=== PATIENT | female | born 1960 | race Caucasian/White ===

== ENCOUNTER 2017-08-26 23:59 | Emergency (ER) | payer MEDICARE, OTHER ==
[~2017-08-26] VITALS: Ht 182.9 cm; Wt 133.3 kg
[~2017-08-26 23:59] MED LIST: ASPI-611 PO; CARI250T PO; DIGO250T77 PO; DULO60CA64 PO; FURO40TA4 PO; GLIM4TAB79 PO; METO50TA16 PO; MORP20CA20 PO; OXYC30TA88 PO; POTA-82 PO; ZALE10CA PO
[2017-08-27 00:14] VITALS: BP 99/53
[2017-08-27] MEDS ORDERED: CLIN150C2 PO (00:33)
[2017-08-27] MEDS ORDERED: CEPH-572 PO (00:33)
== END 2017-08-27 01:24 | disposition home or self-care (01) ==
LOC: ER 08-27
DX: L03.116 Cellulitis of left lower limb (principal); I50.9 Heart failure, unspecified; E11.9 Type 2 diabetes mellitus without complications; G89.29 Other chronic pain; Z88.0 Allergy status to penicillin; Z79.82 Long term (current) use of aspirin; Z79.899 Other long term (current) drug therapy
CPT/HCPCS: 82948; 87070; 87077; 87186; 99284; A6251; A6446

== ENCOUNTER 2018-02-06 00:01 | Emergency (ER) | payer MEDICARE, OTHER ==
[~2018-02-06] VITALS: Ht 182.9 cm; Wt 131.8 kg
[2018-02-06 00:04] VITALS: BP 102/43
[2018-02-06] MEDS ORDERED: CEPH500C5 PO (01:04)
[2018-02-06] MEDS ORDERED: cephalexin 500mg capsule PO ONE (01:05)
== END 2018-02-06 01:25 | disposition home or self-care (01) ==
LOC: ER 00:02
DX: L03.116 Cellulitis of left lower limb (principal); G89.29 Other chronic pain; I50.9 Heart failure, unspecified; E11.9 Type 2 diabetes mellitus without complications; Z98.890 Other specified postprocedural states; Z88.0 Allergy status to penicillin; Z88.8 Allergy status to other drugs, medicaments and biological substances; Z79.82 Long term (current) use of aspirin; Z79.899 Other long term (current) drug therapy
CPT/HCPCS: 99283; A6255

== ENCOUNTER 2018-03-12 09:13 | Inpatient (IN) | payer MEDICARE, OTHER ==
[2018-03-12] VITALS (11 sets, daily range): BP systolic 85–124; BP diastolic 37–69
[~2018-03-12] VITALS: Ht 182.9 cm; Wt 139.0 kg
[~2018-03-12 09:13] MED LIST changes: +CEPH500C5 PO
[2018-03-12] MEDS ORDERED: dextrose 50%-water 50ml dispensing syringe IV ONE ×3 (09:59→10:45)
[2018-03-12 10:18] LABS: BASOPHILS % (AUTO) 0.3 % (0-1); EOSINOPHILS # (AUTO) 0.1 X10'3 (0-0.9); EOSINOPHILS % (AUTO) 0.6 % (0-6); LYMPHOCYTES # (AUTO) 0.7 X10'3 (1.1-4.8); LYMPHOCYTES % (AUTO) 8.4 % (21-51); MEAN CORPUSCULAR HEMOGLOBIN 25.3 PG (27.0-31.0); MEAN CORPUSCULAR HGB CONC 32.1 % (33.0-36.5); MEAN CORPUSCULAR VOLUME 78.7 FL (78-98); MEAN PLATELET VOLUME 7.6 FL (7.4-10.4); MONOCYTES # (AUTO) 0.3 X10'3 (0-0.9); NEUTROPHILS # (AUTO) 7.2 X10'3 (1.8-7.7); NEUTROPHILS % (AUTO) 86.7 % (42-75); PLATELET COUNT 238 X10'3 (140-440); RED CELL DISTRIBUTION WIDTH 18.6 % (11.5-14.5); WHITE BLOOD COUNT 8.4 X10'3 (4.5-11.0)
[2018-03-12] MEDS ORDERED: ondansetron/PF 4mg/2ml inj IV ONE (10:20)
[2018-03-12 10:25] LABS: HEMATOCRIT 18.9 % (35.0-45.0); HEMOGLOBIN 6.1 g/dl (12.0-16.0)
[2018-03-12] MEDS ORDERED: Dextrose 10%-water IV solution 1,000 ML IV ONE (10:27)
[2018-03-12 10:35] LABS: ALANINE AMINOTRANSFERASE 9 U/L (12-78); ALBUMIN 2.8 G/DL (3.4-5.0); ALBUMIN/GLOBULIN RATIO 0.6 (1.1-1.5); ALKALINE PHOSPHATASE 150 IU/L (46-116); ANION GAP 11 (8-16); ASPARTATE AMINO TRANSFERASE 11 U/L (10-37); BILIRUBIN,TOTAL 0.3 MG/DL (0.1-1.0); BLOOD UREA NITROGEN 64 MG/DL (7-18); BUN/CREATININE RATIO 18.1 (6.6-38.0); CALCIUM 7.1 MG/DL (8.5-10.1); CHLORIDE 100 MMOL/L (99-107); CREATININE 3.53 MG/DL (0.40-0.90); ETHANOL < 0.010 GM/DL (0.0-0.010); MAGNESIUM 1.8 MG/DL (1.5-2.4); SODIUM 131 MMOL/L (135-145); TOTAL PROTEIN 7.7 G/DL (6.4-8.2); eGFR 13 ML/MIN
[2018-03-12 10:37] LABS: GLUCOSE 47 MG/DL (70-104); POTASSIUM 6.5 MMOL/L (3.5-5.1)
[2018-03-12] MEDS ORDERED: sodium polystyrene sulfonate 15gm/60ml oral suspension PO ONE (10:45)
[2018-03-12] MEDS ORDERED: calcium chloride 100 MG/1 ML inj IV ONE (10:45)
[2018-03-12] MEDS ORDERED: normal saline 1000ml 1,000 ML IV SCH (11:09)
[2018-03-12] MEDS ORDERED: potassium Cl 20 mEq SR tablet PO PRN (11:10)
[2018-03-12] MEDS ORDERED: dextrose ORAL solution 15 GM/59 ML bottle PO PRN (11:10)
[2018-03-12] MEDS ORDERED: acetaminophen 325mg tablet PO PRN ×2 (11:10)
[2018-03-12] MEDS ORDERED: glucagon, human recombinant 1mg kit SUBCUT PRN (11:10)
[2018-03-12] MEDS ORDERED: MESSAGE TO PHARMACY PO ONE (11:10)
[2018-03-12] MEDS ORDERED: docusate sod 100mg capsule PO PRN (11:10)
[2018-03-12] MEDS ORDERED: mag hydrox/Alum hydrox/simeth 30ml oral suspension PO PRN (11:10)
[2018-03-12] MEDS ORDERED: dextrose 50%-water 50ml dispensing syringe IV PRN (11:10)
[2018-03-12] MEDS ORDERED: ondansetron/PF 4mg/2ml inj IV PRN (11:10)
[2018-03-12] MEDS ORDERED: proCHLORperazine 10 MG/2 ml inj IV ONE (11:15)
[2018-03-12] MEDS ORDERED: GLIM4TAB79 PO (11:58)
[2018-03-12] MEDS ORDERED: TRAZ-219 PO (11:58)
[2018-03-12] MEDS ORDERED: APIX5TAB3 PO (11:58)
[2018-03-12] MEDS ORDERED: OXYC30TA88 PO (11:58)
[2018-03-12] MEDS ORDERED: LISI-600 PO (11:58)
[2018-03-12] MEDS ORDERED: MORP100C17 PO (11:58)
[2018-03-12] MEDS ORDERED: DIAZ5TAB4 PO (11:58)
[2018-03-12 12:04] LABS: HEMOGLOBIN A1C 7.3 % (4.5-6.2)
[2018-03-12] MEDS: dextrose 50%-water 50ml dispensing syringe IV PRN ×2 (13:27→22:38)
[2018-03-12] MEDS: dextrose ORAL solution 15 GM/59 ML bottle PO PRN ×4 (15:44→22:14)
[2018-03-12] MEDS ORDERED: albuterol 2.5 MG/3 ML nebule CONTNEB ONE (19:05)
[2018-03-12] MEDS ORDERED: dextrose 5%-normal saline 1,000 ML IV SCH (19:30)
[2018-03-12] MEDS ORDERED: sodium bicarbonate (8.4%) inj. 50 MEQ in dextrose 5%-water 1,000 ML IV ONE (19:30)
[2018-03-12] MEDS: metoprolol tartrate 25mg tablet PO SCH (20:00)
[2018-03-12] MEDS: morphine ER 100mg tablet PO SCH (20:45)
[2018-03-12] MEDS ORDERED: temazepam 15mg capsule PO PRN (21:00)
[2018-03-12] MEDS: insulin glargine (Lantus) pen - multi-dose SQ SCH (21:00)
[2018-03-12 23:30] LABS: BASOPHILS % (AUTO) 0.5 % (0-1); EOSINOPHILS # (AUTO) 0.1 X10'3 (0-0.9); EOSINOPHILS % (AUTO) 1.9 % (0-6); HEMATOCRIT 22.7 % (35.0-45.0); HEMOGLOBIN 7.5 g/dl (12.0-16.0); LYMPHOCYTES # (AUTO) 0.8 X10'3 (1.1-4.8); LYMPHOCYTES % (AUTO) 10.3 % (21-51); MEAN CORPUSCULAR HEMOGLOBIN 26.4 PG (27.0-31.0); MEAN CORPUSCULAR HGB CONC 33.1 % (33.0-36.5); MEAN CORPUSCULAR VOLUME 79.9 FL (78-98); MEAN PLATELET VOLUME 7.3 FL (7.4-10.4); MONOCYTES # (AUTO) 0.4 X10'3 (0-0.9); NEUTROPHILS % (AUTO) 82.3 % (42-75); PLATELET COUNT 219 X10'3 (140-440); RED BLOOD COUNT 2.85 X10'6 (4.20-5.60); WHITE BLOOD COUNT 7.3 X10'3 (4.5-11.0)
[2018-03-12] MEDS: sodium chloride inj. 154 MEQ in Dextrose 10%-water IV solution 961.5 ML IV SCH (23:39)
[2018-03-12 23:56] LABS: ANISOCYTOSIS 2+; PLATELET ESTIMATE NORMAL
[2018-03-12 23:57] LABS: POIKILOCYTOSIS FEW; POLYCHROMASIA FEW
[2018-03-13] VITALS (11 sets, daily range): BP systolic 87–128; BP diastolic 31–60
[2018-03-13] MEDS: dextrose 50%-water 50ml dispensing syringe IV PRN ×2 (00:11→04:05)
[2018-03-13] MEDS ORDERED: dextrose 50%-water 50ml dispensing syringe IV ONE (00:25)
[2018-03-13] MEDS ORDERED: sodium bicarbonate (8.4%) 1 mEq/ml syringe IV ONE (00:25)
[2018-03-13] MEDS ORDERED: insulin regular, human 10 units/0.1 ml syringe IV ONE (00:25)
[2018-03-13] MEDS ORDERED: albuterol 2.5 MG/3 ML nebule NEB ONE (00:25)
[2018-03-13] MEDS ORDERED: sodium polystyrene sulfonate 15gm/60ml oral suspension PO ONE ×2 (00:25→12:55)
[2018-03-13 05:02] LABS: BASOPHILS % (AUTO) 0.4 % (0-1); EOSINOPHILS # (AUTO) 0.1 X10'3 (0-0.9); EOSINOPHILS % (AUTO) 2.2 % (0-6); LYMPHOCYTES # (AUTO) 0.8 X10'3 (1.1-4.8); LYMPHOCYTES % (AUTO) 13.1 % (21-51); MEAN CORPUSCULAR HEMOGLOBIN 26.5 PG (27.0-31.0); MEAN CORPUSCULAR HGB CONC 32.9 % (33.0-36.5); MEAN CORPUSCULAR VOLUME 80.4 FL (78-98); MEAN PLATELET VOLUME 7.4 FL (7.4-10.4); MONOCYTES # (AUTO) 0.3 X10'3 (0-0.9); MONOCYTES % (AUTO) 5.4 % (2-12); NEUTROPHILS % (AUTO) 78.9 % (42-75); PLATELET COUNT 198 X10'3 (140-440); RED BLOOD COUNT 2.52 X10'6 (4.20-5.60); RED CELL DISTRIBUTION WIDTH 17.8 % (11.5-14.5); WHITE BLOOD COUNT 6.3 X10'3 (4.5-11.0)
[2018-03-13 05:06] LABS: HEMATOCRIT 20.3 % (35.0-45.0); HEMOGLOBIN 6.7 g/dl (12.0-16.0)
[2018-03-13 05:29] LABS: ALANINE AMINOTRANSFERASE 12 U/L (12-78); ALBUMIN 2.4 G/DL (3.4-5.0); ALBUMIN/GLOBULIN RATIO 0.6 (1.1-1.5); ALKALINE PHOSPHATASE 132 IU/L (46-116); ANION GAP 10 (8-16); ASPARTATE AMINO TRANSFERASE 15 U/L (10-37); BILIRUBIN,TOTAL 0.5 MG/DL (0.1-1.0); BLOOD UREA NITROGEN 54 MG/DL (7-18); BUN/CREATININE RATIO 18.6 (6.6-38.0); CALCIUM 6.5 MG/DL (8.5-10.1); CHLORIDE 104 MMOL/L (99-107); GLUCOSE 120 MG/DL (70-104); MAGNESIUM 1.6 MG/DL (1.5-2.4); POTASSIUM 5.5 MMOL/L (3.5-5.1); SODIUM 135 MMOL/L (135-145); TOTAL CARBON DIOXIDE 21.2 MMOL/L (24-32); TOTAL PROTEIN 6.6 G/DL (6.4-8.2); eGFR 17 ML/MIN
[2018-03-13] MEDS ORDERED: pneumococcal 23-VAL P-sac vacc 25 mcg/0.5ml vial IMVAC ONE (08:00)
[2018-03-13] MEDS: K and/or MAG REPLACEMENT MC SCH (08:00)
[2018-03-13] MEDS: metoprolol tartrate 25mg tablet PO SCH ×2 (08:00→20:00)
[2018-03-13] MEDS: sodium chloride inj. 154 MEQ in Dextrose 10%-water IV solution 961.5 ML IV SCH ×2 (08:08→11:37)
[2018-03-13] MEDS: morphine ER 100mg tablet PO SCH ×3 (08:40→16:24)
[2018-03-13] MEDS: duloxetine 30mg CAPSULE.DR PO SCH (08:40)
[2018-03-13] MEDS ORDERED: vancomycin/NS 1 GM ADD-VANTAGE 250 ML IV ONE ×2 (09:05→11:20)
[2018-03-13] MEDS ORDERED: levoFLOXACIN-Levaquin 750MG/D5 150 ML IV SCH (09:30)
[2018-03-13] MEDS ORDERED: dextrose 5%-water 1,000 ML IV SCH (12:15)
[2018-03-13 14:50] LABS: RED BLOOD COUNT 2.68 X10'6 (4.20-5.60); RETICULOCYTE % (AUTO) 2.4 % (0.5-1.5)
[2018-03-13 17:15] LABS: BASOPHILS % (AUTO) 0.4 % (0-1); EOSINOPHILS # (AUTO) 0.1 X10'3 (0-0.9); EOSINOPHILS % (AUTO) 0.8 % (0-6); HEMATOCRIT 22.7 % (35.0-45.0); HEMOGLOBIN 7.4 g/dl (12.0-16.0); LYMPHOCYTES # (AUTO) 0.6 X10'3 (1.1-4.8); MEAN CORPUSCULAR HEMOGLOBIN 26.5 PG (27.0-31.0); MEAN CORPUSCULAR HGB CONC 32.7 % (33.0-36.5); MEAN CORPUSCULAR VOLUME 80.9 FL (78-98); MEAN PLATELET VOLUME 7.4 FL (7.4-10.4); MONOCYTES # (AUTO) 0.4 X10'3 (0-0.9); MONOCYTES % (AUTO) 4.4 % (2-12); NEUTROPHILS # (AUTO) 7.2 X10'3 (1.8-7.7); NEUTROPHILS % (AUTO) 87.4 % (42-75); PLATELET COUNT 205 X10'3 (140-440); RED BLOOD COUNT 2.81 X10'6 (4.20-5.60); RED CELL DISTRIBUTION WIDTH 17.5 % (11.5-14.5); WHITE BLOOD COUNT 8.2 X10'3 (4.5-11.0)
[2018-03-13 17:31] LABS: ALANINE AMINOTRANSFERASE 13 U/L (12-78); ALBUMIN 2.3 G/DL (3.4-5.0); ALBUMIN/GLOBULIN RATIO 0.6 (1.1-1.5); ALKALINE PHOSPHATASE 136 IU/L (46-116); ANION GAP 10 (8-16); ASPARTATE AMINO TRANSFERASE 14 U/L (10-37); BILIRUBIN,TOTAL 0.7 MG/DL (0.1-1.0); BLOOD UREA NITROGEN 45 MG/DL (7-18); BUN/CREATININE RATIO 16.2 (6.6-38.0); CALCIUM 6.2 MG/DL (8.5-10.1); CHLORIDE 102 MMOL/L (99-107); CREATININE 2.78 MG/DL (0.40-0.90); GLUCOSE 305 MG/DL (70-104); POTASSIUM 5.1 MMOL/L (3.5-5.1); SODIUM 134 MMOL/L (135-145); TOTAL CARBON DIOXIDE 21.6 MMOL/L (24-32); TOTAL PROTEIN 6.4 G/DL (6.4-8.2); eGFR 18 ML/MIN
[2018-03-13] MEDS: normal saline 1000ml 1,000 ML IV SCH (17:55)
[2018-03-13] MEDS: insulin glargine (Lantus) pen - multi-dose SQ SCH (20:49)
[2018-03-13] MEDS: insulin Lispro (HumaLOG) vial - multi-dose SQ SCH (20:49)
[2018-03-13] MEDS: lactobacillus rhamnosus 10,000 MMU CELLS/CAPSULE PO SCH (21:08)
[2018-03-13] MEDS ORDERED: diazepam 5mg tablet PO PRN (21:45)
[2018-03-14] VITALS (10 sets, daily range): BP systolic 113–134; BP diastolic 51–81
[2018-03-14] MEDS: morphine ER 100mg tablet PO SCH ×4 (00:05→23:41)
[2018-03-14] MEDS: normal saline 1000ml 1,000 ML IV SCH ×3 (02:03→10:44)
[2018-03-14 06:50] LABS: BASOPHILS % (AUTO) 0.3 % (0-1); EOSINOPHILS # (AUTO) 0.1 X10'3 (0-0.9); EOSINOPHILS % (AUTO) 1.9 % (0-6); LYMPHOCYTES # (AUTO) 0.7 X10'3 (1.1-4.8); LYMPHOCYTES % (AUTO) 9.7 % (21-51); MEAN CORPUSCULAR HEMOGLOBIN 26.2 PG (27.0-31.0); MEAN CORPUSCULAR HGB CONC 32.9 % (33.0-36.5); MEAN CORPUSCULAR VOLUME 79.7 FL (78-98); MEAN PLATELET VOLUME 7.6 FL (7.4-10.4); MONOCYTES # (AUTO) 0.4 X10'3 (0-0.9); MONOCYTES % (AUTO) 5.8 % (2-12); NEUTROPHILS # (AUTO) 5.9 X10'3 (1.8-7.7); NEUTROPHILS % (AUTO) 82.3 % (42-75); PLATELET COUNT 200 X10'3 (140-440); RED BLOOD COUNT 2.66 X10'6 (4.20-5.60); RED CELL DISTRIBUTION WIDTH 18.2 % (11.5-14.5); WHITE BLOOD COUNT 7.2 X10'3 (4.5-11.0)
[2018-03-14 07:00] LABS: HEMATOCRIT 21.2 % (35.0-45.0)
[2018-03-14] MEDS: lactobacillus rhamnosus 10,000 MMU CELLS/CAPSULE PO SCH ×2 (07:22→20:51)
[2018-03-14] MEDS: duloxetine 30mg CAPSULE.DR PO SCH (07:22)
[2018-03-14 07:38] LABS: ALANINE AMINOTRANSFERASE 15 U/L (12-78); ALBUMIN 2.3 G/DL (3.4-5.0); ALBUMIN/GLOBULIN RATIO 0.6 (1.1-1.5); ALKALINE PHOSPHATASE 124 IU/L (46-116); ANION GAP 9 (8-16); ASPARTATE AMINO TRANSFERASE 12 U/L (10-37); BILIRUBIN,TOTAL 0.7 MG/DL (0.1-1.0); BLOOD UREA NITROGEN 36 MG/DL (7-18); BUN/CREATININE RATIO 15.9 (6.6-38.0); CALCIUM 6.5 MG/DL (8.5-10.1); CHLORIDE 105 MMOL/L (99-107); CREATININE 2.27 MG/DL (0.40-0.90); GLUCOSE 206 MG/DL (70-104); MAGNESIUM 1.3 MG/DL (1.5-2.4); POTASSIUM 4.2 MMOL/L (3.5-5.1); SODIUM 135 MMOL/L (135-145); TOTAL CARBON DIOXIDE 20.6 MMOL/L (24-32); TOTAL PROTEIN 6.3 G/DL (6.4-8.2); eGFR 22 ML/MIN
[2018-03-14] MEDS: K and/or MAG REPLACEMENT MC SCH (07:47)
[2018-03-14] MEDS: metoprolol succinate 25mg (24-HOUR) SR. Tablet PO SCH (08:07)
[2018-03-14] MEDS: insulin Lispro (HumaLOG) vial - multi-dose SQ SCH ×3 (08:15→18:58)
[2018-03-14 10:08] LABS: HYPOCHROMASIA 1+; PLATELET ESTIMATE NORMAL; POLYCHROMASIA 2+
[2018-03-14 10:09] LABS: ANISOCYTOSIS 2+
[2018-03-14 12:16] LABS: OCCULT BLOOD STOOL NEGATIVE (Neg)
[2018-03-14] MEDS: magnesium 1gm/100ml D5W IVPB 100 ML IV SCH ×2 (14:43→15:42)
[2018-03-14 15:51] LABS: MEAN CORPUSCULAR HEMOGLOBIN 26.5 PG (27.0-31.0); MEAN CORPUSCULAR HGB CONC 33.3 % (33.0-36.5); MEAN CORPUSCULAR VOLUME 79.6 FL (78-98); MEAN PLATELET VOLUME 7.2 FL (7.4-10.4); PLATELET COUNT 202 X10'3 (140-440); RED BLOOD COUNT 2.42 X10'6 (4.20-5.60); WHITE BLOOD COUNT 5.9 X10'3 (4.5-11.0)
[2018-03-14 15:59] LABS: HEMATOCRIT 19.3 % (35.0-45.0); HEMOGLOBIN 6.4 g/dl (12.0-16.0)
[2018-03-14] MEDS: insulin glargine (Lantus) pen - multi-dose SQ SCH (21:19)
[2018-03-15] VITALS: BP 120/69
[2018-03-15 00:36] VITALS: BP 130/69
[2018-03-15 01:36] VITALS: BP 136/77
[2018-03-15 02:16] VITALS: BP 145/74
[2018-03-15 05:08] LABS: BASOPHILS % (AUTO) 0.3 % (0-1); EOSINOPHILS # (AUTO) 0.2 X10'3 (0-0.9); EOSINOPHILS % (AUTO) 2.7 % (0-6); HEMATOCRIT 26.4 % (35.0-45.0); HEMOGLOBIN 8.9 g/dl (12.0-16.0); LYMPHOCYTES # (AUTO) 0.8 X10'3 (1.1-4.8); LYMPHOCYTES % (AUTO) 11.2 % (21-51); MEAN CORPUSCULAR HEMOGLOBIN 27.4 PG (27.0-31.0); MEAN CORPUSCULAR HGB CONC 33.6 % (33.0-36.5); MEAN CORPUSCULAR VOLUME 81.6 FL (78-98); MEAN PLATELET VOLUME 7.3 FL (7.4-10.4); MONOCYTES # (AUTO) 0.5 X10'3 (0-0.9); MONOCYTES % (AUTO) 6.9 % (2-12); NEUTROPHILS # (AUTO) 5.9 X10'3 (1.8-7.7); NEUTROPHILS % (AUTO) 78.9 % (42-75); PLATELET COUNT 224 X10'3 (140-440); RED BLOOD COUNT 3.24 X10'6 (4.20-5.60); RED CELL DISTRIBUTION WIDTH 18.3 % (11.5-14.5); WHITE BLOOD COUNT 7.5 X10'3 (4.5-11.0)
[2018-03-15] MEDS: normal saline 1000ml 1,000 ML IV SCH ×3 (05:12→16:55)
[2018-03-15] MEDS: lactobacillus rhamnosus 10,000 MMU CELLS/CAPSULE PO SCH (06:56)
[2018-03-15] MEDS: morphine ER 100mg tablet PO SCH ×2 (06:56→15:57)
[2018-03-15] MEDS: duloxetine 30mg CAPSULE.DR PO SCH (06:56)
[2018-03-15] MEDS: metoprolol succinate 25mg (24-HOUR) SR. Tablet PO SCH (06:56)
[2018-03-15 07:26] VITALS: BP 133/71
[2018-03-15] MEDS: K and/or MAG REPLACEMENT MC SCH (08:00)
[2018-03-15 08:07] LABS: ALANINE AMINOTRANSFERASE 20 U/L (12-78); ALBUMIN 2.5 G/DL (3.4-5.0); ALBUMIN/GLOBULIN RATIO 0.6 (1.1-1.5); ALKALINE PHOSPHATASE 128 IU/L (46-116); ANION GAP 12 (8-16); ASPARTATE AMINO TRANSFERASE 13 U/L (10-37); BILIRUBIN,TOTAL 1.3 MG/DL (0.1-1.0); BLOOD UREA NITROGEN 25 MG/DL (7-18); BUN/CREATININE RATIO 14.1 (6.6-38.0); CALCIUM 7.2 MG/DL (8.5-10.1); CHLORIDE 107 MMOL/L (99-107); CREATININE 1.77 MG/DL (0.40-0.90); GLUCOSE 113 MG/DL (70-104); MAGNESIUM 1.6 MG/DL (1.5-2.4); POTASSIUM 4.2 MMOL/L (3.5-5.1); SODIUM 138 MMOL/L (135-145); TOTAL CARBON DIOXIDE 19.4 MMOL/L (24-32); TOTAL PROTEIN 6.7 G/DL (6.4-8.2); eGFR 30 ML/MIN
[2018-03-15] MEDS: insulin Lispro (HumaLOG) vial - multi-dose SQ SCH ×2 (09:12→13:36)
[2018-03-15 11:58] VITALS: BP 116/59
[2018-03-15] MEDS ORDERED: VANCOMYCIN LEVEL IV ONE (21:30)
[2018-03-17] MEDS ORDERED: VANCOMYCIN LEVEL IV NR (09:30)
== END 2018-03-15 17:43 | disposition home or self-care (01) | DRG 682 ==
LOC: ER 09:14 → ED HOLD 11:09 → SUR 3N 13:03
PROVIDERS: ADMIT Internal Medicine; ATTEND Family Medicine
PROC: 30233N1 Transfusion of Nonautologous Red Blood Cells into Peripheral Vein, Percutaneous Approach (ICD-10-PCS; principal; 2018-03-12)
PROC: 30233N1 Transfusion of Nonautologous Red Blood Cells into Peripheral Vein, Percutaneous Approach (ICD-10-PCS; 2018-03-13)
PROC: 30233N1 Transfusion of Nonautologous Red Blood Cells into Peripheral Vein, Percutaneous Approach (ICD-10-PCS; 2018-03-14)
DX: N17.9 Acute kidney failure, unspecified (principal); G93.41 Metabolic encephalopathy; E87.1 Hypo-osmolality and hyponatremia; I13.0 Hypertensive heart and chronic kidney disease with heart failure and stage 1 through stage 4 chronic kidney disease, or unspecified chronic kidney disease; E11.649 Type 2 diabetes mellitus with hypoglycemia without coma; E87.5 Hyperkalemia; D63.8 Anemia in other chronic diseases classified elsewhere; I50.9 Heart failure, unspecified; E86.0 Dehydration; G89.4 Chronic pain syndrome; I48.2 Chronic atrial fibrillation; S81.802A Unspecified open wound, left lower leg, initial encounter; E11.22 Type 2 diabetes mellitus with diabetic chronic kidney disease; N18.9 Chronic kidney disease, unspecified; X58.XXXA Exposure to other specified factors, initial encounter; Z88.0 Allergy status to penicillin; Z88.8 Allergy status to other drugs, medicaments and biological substances; Z79.01 Long term (current) use of anticoagulants; Z79.82 Long term (current) use of aspirin; Z79.899 Other long term (current) drug therapy; Z87.891 Personal history of nicotine dependence; Z86.73 Personal history of transient ischemic attack (TIA), and cerebral infarction without residual deficits; Z82.41 Family history of sudden cardiac death; Y93.89 Activity, other specified; Y92.89 Other specified places as the place of occurrence of the external cause; Y99.8 Other external cause status
CPT/HCPCS: 36415; 71045; 80053; 80162; 80202; 80320; 82272; 82728; 82948; 83036; 83605; 83735; 84132; 84145; 84466; 85025; 85027; 85045; 86870; 86885; 86900; 86901; 86902; 86905; 86920; 86922; 87040; 87070; 87075; 87077; 87102; 87186; 90732; 93005; 96374; 96375; 96376; 97116; 97161; 97530; 99285; A6209; A6212; A6213; A6257; A6258; A6446; A6449; J0780; J1815; J1956; J2405; J3370; J7030; J7042; J7070; J7131; P9016

== ENCOUNTER 2018-04-22 17:24 | Inpatient (IN) | payer MEDICARE, OTHER ==
[~2018-04-22] VITALS: Ht 182.9 cm; Wt 132.6 kg
[~2018-04-22 17:24] MED LIST changes: +APIX5TAB3 PO; -CARI250T PO; -CEPH500C5 PO; +DIAZ5TAB4 PO; +LISI-600 PO; +MORP100C17 PO; -MORP20CA20 PO; +TRAZ-219 PO; -ZALE10CA PO
[2018-04-22 18:28] LABS: BASOPHILS # (AUTO) 0.1 X10'3 (0-0.2); BASOPHILS % (AUTO) 0.7 % (0-1); EOSINOPHILS # (AUTO) 0.2 X10'3 (0-0.9); EOSINOPHILS % (AUTO) 2.5 % (0-6); HEMATOCRIT 30.4 % (35.0-45.0); HEMOGLOBIN 9.9 g/dl (12.0-16.0); LYMPHOCYTES # (AUTO) 1.4 X10'3 (1.1-4.8); LYMPHOCYTES % (AUTO) 14.8 % (21-51); MEAN CORPUSCULAR HEMOGLOBIN 27.1 PG (27.0-31.0); MEAN CORPUSCULAR HGB CONC 32.4 % (33.0-36.5); MEAN CORPUSCULAR VOLUME 83.7 FL (78-98); MEAN PLATELET VOLUME 7.6 FL (7.4-10.4); MONOCYTES # (AUTO) 0.5 X10'3 (0-0.9); MONOCYTES % (AUTO) 5.8 % (2-12); NEUTROPHILS # (AUTO) 7.2 X10'3 (1.8-7.7); NEUTROPHILS % (AUTO) 76.2 % (42-75); PLATELET COUNT 279 X10'3 (140-440); RED BLOOD COUNT 3.64 X10'6 (4.20-5.60); RED CELL DISTRIBUTION WIDTH 19.3 % (11.5-14.5); WHITE BLOOD COUNT 9.4 X10'3 (4.5-11.0)
[2018-04-22] MEDS ORDERED: normal saline 1000ml 1,000 ML IV ONE ×2 (18:40→19:35)
[2018-04-22 18:45] LABS: ANISOCYTOSIS 2+; PLATELET ESTIMATE NORMAL
[2018-04-22 18:54] LABS: PROTHROMBIN TIME 10.6 SECONDS (9.0-12.0)
[2018-04-22 18:55] LABS: PARTIAL THROMBOPLASTIN TIME 30 SECONDS (22-32)
[2018-04-22 19:00] LABS: ALANINE AMINOTRANSFERASE 16 U/L (12-78); ALBUMIN 3.3 G/DL (3.4-5.0); ALBUMIN/GLOBULIN RATIO 0.7 (1.1-1.5); ALKALINE PHOSPHATASE 178 IU/L (46-116); ANION GAP 10 (8-16); ASPARTATE AMINO TRANSFERASE 18 U/L (10-37); BILIRUBIN,TOTAL 0.6 MG/DL (0.1-1.0); BLOOD UREA NITROGEN 48 MG/DL (7-18); BUN/CREATININE RATIO 12.1 (6.6-38.0); CALCIUM 8.1 MG/DL (8.5-10.1); CHLORIDE 97 MMOL/L (99-107); CREATININE 3.98 MG/DL (0.40-0.90); GLUCOSE 151 MG/DL (70-104); POTASSIUM 5.2 MMOL/L (3.5-5.1); SODIUM 128 MMOL/L (135-145); TOTAL PROTEIN 8.3 G/DL (6.4-8.2); eGFR 12 ML/MIN
[2018-04-22 19:01] LABS: CLARITY,URINE SLIGHTLY CLOUDY (Clear); COLOR,URINE YELLOW (Yellow); GLUCOSE, URINE NEGATIVE (Neg); KETONES,URINE NEGATIVE (Neg); LEUKOCYTE ESTERASE ,URINE NEGATIVE (Neg); NITRITES, URINE NEGATIVE (Neg); OCCULT BLOOD,URINE NEGATIVE (Neg); PROTEIN,URINE TRACE mg/dl (Neg); UROBILINOGEN,URINE 0.2 E.U/dL (0.2-1.0)
[2018-04-22 19:09] LABS: UA COLLECTION TYPE CLN CATCH MIDSTREAM
[2018-04-22 19:13] LABS: BACTERIA,URINE 3+ /HPF (Neg); MUCUS STRANDS MODERATE /LPF (Neg); RBC,URINE 0-2 /HPF (0-2); SQUAMOUS EPITHELIAL CELL,UR MODERATE /LPF (FEW)
[2018-04-22] MEDS ORDERED: glucagon, human recombinant 1mg kit SUBCUT PRN (19:40)
[2018-04-22] MEDS ORDERED: acetaminophen 325mg tablet PO PRN (19:40)
[2018-04-22] MEDS ORDERED: magnesium 4gm in 100ml NS 100 ML IV PRN (19:40)
[2018-04-22] MEDS ORDERED: magnesium hydroxide 30ml (MOM) UD suspension PO PRN (19:40)
[2018-04-22] MEDS ORDERED: MESSAGE TO PHARMACY PO ONE (19:40)
[2018-04-22] MEDS ORDERED: potassium Cl 40MEQ/NS 500ml 500 ML IV PRN ×2 (19:40)
[2018-04-22] MEDS ORDERED: morphine 2 MG/ML inj. syringe IV PRN (19:40)
[2018-04-22] MEDS ORDERED: ipratropium/albuterol 3ml nebule NEB PRN (19:40)
[2018-04-22] MEDS ORDERED: potassium Cl 20 mEq SR tablet PO PRN ×2 (19:40)
[2018-04-22] MEDS ORDERED: mag hydrox/Alum hydrox/simeth 30ml oral suspension PO PRN (19:40)
[2018-04-22] MEDS ORDERED: dextrose 50%-water 50ml dispensing syringe IV PRN ×2 (19:40)
[2018-04-22] MEDS ORDERED: magnesium 1gm/100ml D5W IVPB 100 ML IV PRN (19:40)
[2018-04-22] MEDS ORDERED: dextrose ORAL solution 15 GM/59 ML bottle PO PRN ×2 (19:40)
[2018-04-22] MEDS ORDERED: ondansetron/PF 4mg/2ml inj IV PRN (19:40)
[2018-04-22] MEDS ORDERED: DULO-31 PO (19:57)
[2018-04-22] MEDS: apixaban 5mg tablet PO SCH (20:11)
[2018-04-22] MEDS: insulin glargine (Lantus) pen - multi-dose SQ SCH (21:00)
[2018-04-22 21:30] VITALS: BP 111/75
[2018-04-22] MEDS: normal saline 1000ml 1,000 ML IV SCH (22:13)
[2018-04-23] VITALS: BP 115/70
[2018-04-23] MEDS: morphine 2 MG/ML inj. syringe IV PRN ×2 (04:59→23:02)
[2018-04-23 05:53] LABS: ALANINE AMINOTRANSFERASE 14 U/L (12-78); ALBUMIN 2.8 G/DL (3.4-5.0); ALBUMIN/GLOBULIN RATIO 0.6 (1.1-1.5); ALKALINE PHOSPHATASE 173 IU/L (46-116); ANION GAP 12 (8-16); ASPARTATE AMINO TRANSFERASE 18 U/L (10-37); BILIRUBIN,TOTAL 0.5 MG/DL (0.1-1.0); BLOOD UREA NITROGEN 44 MG/DL (7-18); BUN/CREATININE RATIO 14.5 (6.6-38.0); CALCIUM 7.3 MG/DL (8.5-10.1); CHLORIDE 101 MMOL/L (99-107); CHOL/HDL RATIO 5.6 (0.00-4.99); CHOLESTEROL 145 MG/DL (0-200); CREATININE 3.03 MG/DL (0.40-0.90); GLUCOSE 159 MG/DL (70-104); HDL CHOLESTEROL 26 MG/DL (35-60); LDL CHOLESTEROL 93 MG/DL (50-100); MAGNESIUM 1.9 MG/DL (1.5-2.4); POTASSIUM 4.8 MMOL/L (3.5-5.1); SODIUM 131 MMOL/L (135-145); TOTAL CARBON DIOXIDE 17.9 MMOL/L (24-32); TOTAL PROTEIN 7.5 G/DL (6.4-8.2); TRIGLYCERIDES 166 MG/DL (20-135); eGFR 16 ML/MIN
[2018-04-23] MEDS: normal saline 1000ml 1,000 ML IV SCH ×3 (07:05→23:02)
[2018-04-23] MEDS: diazepam 5mg tablet PO SCH (07:27)
[2018-04-23] MEDS: metoprolol tartrate 50mg tablet PO SCH (07:27)
[2018-04-23] MEDS: apixaban 5mg tablet PO SCH ×2 (07:27→20:53)
[2018-04-23] MEDS: morphine ER 100mg tablet PO SCH ×3 (07:27→20:54)
[2018-04-23] MEDS: duloxetine 30mg CAPSULE.DR PO SCH (07:27)
[2018-04-23] MEDS: K and/or MAG REPLACEMENT MC SCH (07:33)
[2018-04-23 07:38] VITALS: BP_SYST 113; BP_SYST 133; BP_DIAS 67; BP_DIAS 73; BP_DIAS 85
[2018-04-23] MEDS ORDERED: MORPHINE SULFATE PO SCH (08:00)
[2018-04-23] MEDS ORDERED: apixaban 5mg tablet PO SCH (08:00)
[2018-04-23] MEDS ORDERED: DULOXETINE HCL 90 MG PO SCH (08:00)
[2018-04-23 11:02] LABS: BASOPHILS % (AUTO) 0.2 % (0-1); EOSINOPHILS # (AUTO) 0.2 X10'3 (0-0.9); EOSINOPHILS % (AUTO) 2.3 % (0-6); HEMATOCRIT 28.1 % (35.0-45.0); HEMOGLOBIN 9.4 g/dl (12.0-16.0); LYMPHOCYTES # (AUTO) 0.7 X10'3 (1.1-4.8); LYMPHOCYTES % (AUTO) 7.4 % (21-51); MEAN CORPUSCULAR HEMOGLOBIN 27.6 PG (27.0-31.0); MEAN CORPUSCULAR HGB CONC 33.3 % (33.0-36.5); MEAN CORPUSCULAR VOLUME 82.9 FL (78-98); MEAN PLATELET VOLUME 7.9 FL (7.4-10.4); MONOCYTES # (AUTO) 0.3 X10'3 (0-0.9); MONOCYTES % (AUTO) 3.1 % (2-12); NEUTROPHILS # (AUTO) 7.7 X10'3 (1.8-7.7); PLATELET COUNT 290 X10'3 (140-440); RED BLOOD COUNT 3.39 X10'6 (4.20-5.60); RED CELL DISTRIBUTION WIDTH 19.2 % (11.5-14.5); WHITE BLOOD COUNT 8.9 X10'3 (4.5-11.0)
[2018-04-23 11:50] VITALS: BP 111/62
[2018-04-23] MEDS: CefTRIAXone/D5W-Rocephin 1gm 50 ML IV SCH (12:58)
[2018-04-23 18:00] VITALS: BP 115/78
[2018-04-23] MEDS: traZODone 50mg tablet PO SCH (20:54)
[2018-04-23] MEDS: insulin glargine (Lantus) pen - multi-dose SQ SCH (21:00)
[2018-04-23] MEDS ORDERED: TRAZODONE HCL 100 MG PO SCH (21:00)
[2018-04-23 23:24] LABS: SODIUM,URINE RANDOM < 15 MEQ/L; TOTAL PROTEIN,URINE RANDOM 47.4 MG/DL
[2018-04-24] VITALS: BP 100/50
[2018-04-24] MEDS: normal saline 1000ml 1,000 ML IV SCH (05:34)
[2018-04-24] MEDS: morphine 2 MG/ML inj. syringe IV PRN (05:38)
[2018-04-24 06:33] LABS: % IRON SATURATION 17 % (11-46); IRON 45 UG/DL (49-151); TOTAL IRON BINDING CAPACITY 266 UG/DL (259-388)
[2018-04-24 08:00] VITALS: BP_SYST 103; BP_SYST 113; BP_SYST 121; BP_SYST 132; BP_DIAS 60; BP_DIAS 72; BP_DIAS 77; BP_DIAS 78
[2018-04-24] MEDS: K and/or MAG REPLACEMENT MC SCH (08:00)
[2018-04-24] MEDS: duloxetine 30mg CAPSULE.DR PO SCH (08:37)
[2018-04-24] MEDS: CefTRIAXone/D5W-Rocephin 1gm 50 ML IV SCH (08:37)
[2018-04-24] MEDS: metoprolol tartrate 50mg tablet PO SCH (08:37)
[2018-04-24] MEDS: apixaban 5mg tablet PO SCH ×2 (08:38→22:08)
[2018-04-24] MEDS: diazepam 5mg tablet PO SCH (08:38)
[2018-04-24] MEDS: morphine ER 100mg tablet PO SCH ×3 (08:38→22:08)
[2018-04-24] MEDS: insulin Lispro (HumaLOG) vial - multi-dose SQ SCH ×2 (08:54→13:05)
[2018-04-24 10:44] LABS: BASOPHILS % (AUTO) 0.4 % (0-1); EOSINOPHILS # (AUTO) 0.3 X10'3 (0-0.9); EOSINOPHILS % (AUTO) 3.9 % (0-6); HEMATOCRIT 25.7 % (35.0-45.0); HEMOGLOBIN 8.5 g/dl (12.0-16.0); LYMPHOCYTES % (AUTO) 14.8 % (21-51); MEAN CORPUSCULAR HEMOGLOBIN 27.7 PG (27.0-31.0); MEAN CORPUSCULAR HGB CONC 33.1 % (33.0-36.5); MEAN CORPUSCULAR VOLUME 83.7 FL (78-98); MEAN PLATELET VOLUME 7.7 FL (7.4-10.4); MONOCYTES # (AUTO) 0.4 X10'3 (0-0.9); MONOCYTES % (AUTO) 6.4 % (2-12); NEUTROPHILS # (AUTO) 4.9 X10'3 (1.8-7.7); NEUTROPHILS % (AUTO) 74.5 % (42-75); PLATELET COUNT 254 X10'3 (140-440); RED BLOOD COUNT 3.07 X10'6 (4.20-5.60); RED CELL DISTRIBUTION WIDTH 20.2 % (11.5-14.5); WHITE BLOOD COUNT 6.6 X10'3 (4.5-11.0)
[2018-04-24 10:57] LABS: ANISOCYTOSIS 2+; PLATELET ESTIMATE NORMAL
[2018-04-24 11:00] VITALS: BP 104/66
[2018-04-24 11:20] LABS: ALANINE AMINOTRANSFERASE 16 U/L (12-78); ALBUMIN 2.7 G/DL (3.4-5.0); ALBUMIN/GLOBULIN RATIO 0.6 (1.1-1.5); ALKALINE PHOSPHATASE 162 IU/L (46-116); ANION GAP 12 (8-16); ASPARTATE AMINO TRANSFERASE 15 U/L (10-37); BILIRUBIN,TOTAL 0.4 MG/DL (0.1-1.0); BLOOD UREA NITROGEN 35 MG/DL (7-18); BUN/CREATININE RATIO 18.4 (6.6-38.0); CALCIUM 7.4 MG/DL (8.5-10.1); CHLORIDE 101 MMOL/L (99-107); FERRITIN 140 NG/ML (8-252); GLUCOSE 207 MG/DL (70-104); MAGNESIUM 1.9 MG/DL (1.5-2.4); POTASSIUM 4.5 MMOL/L (3.5-5.1); SODIUM 130 MMOL/L (135-145); TOTAL CARBON DIOXIDE 17.5 MMOL/L (24-32); TOTAL PROTEIN 7.5 G/DL (6.4-8.2); eGFR 27 ML/MIN
[2018-04-24] MEDS: sodium bicarbonate (8.4%) inj. 100 MEQ in sodium chloride 0.45% 1,000 ML IV SCH (15:55)
[2018-04-24 20:00] VITALS: BP 114/77
[2018-04-24] MEDS: lactobacillus rhamnosus 10,000 MMU CELLS/CAPSULE PO SCH (22:07)
[2018-04-24] MEDS: traZODone 50mg tablet PO SCH (22:07)
[2018-04-24] MEDS: insulin glargine (Lantus) pen - multi-dose SQ SCH (22:08)
[2018-04-24] MEDS: sodium bicarbonate 650mg tablet PO SCH (22:08)
[2018-04-25] VITALS: BP_SYST 104; BP_SYST 109; BP_SYST 99; BP_DIAS 47; BP_DIAS 50; BP_DIAS 52
[2018-04-25 00:30] LABS: OCCULT BLOOD STOOL NEGATIVE (Neg)
[2018-04-25] MEDS: sodium bicarbonate (8.4%) inj. 100 MEQ in sodium chloride 0.45% 1,000 ML IV SCH ×2 (03:09→11:00)
[2018-04-25 06:30] VITALS: BP_SYST 105; BP_SYST 109; BP_SYST 95; BP_DIAS 64; BP_DIAS 65
[2018-04-25 07:47] VITALS: BP 95/65
[2018-04-25] MEDS: K and/or MAG REPLACEMENT MC SCH (08:00)
[2018-04-25 08:46] LABS: BASOPHILS % (AUTO) 0.6 % (0-1); EOSINOPHILS # (AUTO) 0.2 X10'3 (0-0.9); HEMATOCRIT 31.3 % (35.0-45.0); HEMOGLOBIN 10.2 g/dl (12.0-16.0); LYMPHOCYTES # (AUTO) 1.1 X10'3 (1.1-4.8); LYMPHOCYTES % (AUTO) 22.9 % (21-51); MEAN CORPUSCULAR HEMOGLOBIN 27.5 PG (27.0-31.0); MEAN CORPUSCULAR HGB CONC 32.7 % (33.0-36.5); MEAN CORPUSCULAR VOLUME 84.1 FL (78-98); MEAN PLATELET VOLUME 7.8 FL (7.4-10.4); MONOCYTES # (AUTO) 0.3 X10'3 (0-0.9); MONOCYTES % (AUTO) 5.8 % (2-12); NEUTROPHILS # (AUTO) 3.1 X10'3 (1.8-7.7); NEUTROPHILS % (AUTO) 65.7 % (42-75); PLATELET COUNT 276 X10'3 (140-440); RED BLOOD COUNT 3.72 X10'6 (4.20-5.60); RED CELL DISTRIBUTION WIDTH 19.9 % (11.5-14.5); WHITE BLOOD COUNT 4.8 X10'3 (4.5-11.0)
[2018-04-25 09:09] LABS: ALANINE AMINOTRANSFERASE 18 U/L (12-78); ALBUMIN 3.2 G/DL (3.4-5.0); ALBUMIN/GLOBULIN RATIO 0.6 (1.1-1.5); ALKALINE PHOSPHATASE 175 IU/L (46-116); ANION GAP 12 (8-16); ASPARTATE AMINO TRANSFERASE 21 U/L (10-37); BILIRUBIN,TOTAL 0.4 MG/DL (0.1-1.0); BLOOD UREA NITROGEN 28 MG/DL (7-18); BUN/CREATININE RATIO 17.8 (6.6-38.0); CALCIUM 8.1 MG/DL (8.5-10.1); CHLORIDE 104 MMOL/L (99-107); CREATININE 1.57 MG/DL (0.40-0.90); GLUCOSE 134 MG/DL (70-104); POTASSIUM 4.3 MMOL/L (3.5-5.1); SODIUM 138 MMOL/L (135-145); TOTAL CARBON DIOXIDE 21.7 MMOL/L (24-32); TOTAL PROTEIN 8.6 G/DL (6.4-8.2); eGFR 34 ML/MIN
[2018-04-25] MEDS: CefTRIAXone/D5W-Rocephin 1gm 50 ML IV SCH (10:01)
[2018-04-25] MEDS: morphine ER 100mg tablet PO SCH ×2 (10:01→13:05)
[2018-04-25] MEDS: sodium bicarbonate 650mg tablet PO SCH ×2 (10:01→13:05)
[2018-04-25] MEDS: diazepam 5mg tablet PO SCH (10:01)
[2018-04-25] MEDS: apixaban 5mg tablet PO SCH (10:01)
[2018-04-25] MEDS: lactobacillus rhamnosus 10,000 MMU CELLS/CAPSULE PO SCH (10:02)
[2018-04-25] MEDS: duloxetine 30mg CAPSULE.DR PO SCH (10:06)
[2018-04-25] MEDS: insulin Lispro (HumaLOG) vial - multi-dose SQ SCH (10:19)
[2018-04-25] MEDS ORDERED: LACT1CAP26 PO (11:05)
[2018-04-25] MEDS ORDERED: SODI650T29 PO (11:05)
[2018-04-25] MEDS ORDERED: CEFD300C3 PO (11:05)
[2018-04-25] MEDS ORDERED: SAXA5TAB PO (11:05)
[2018-04-25 12:32] VITALS: BP 133/76
[2018-04-25 12:48] LABS: ANISOCYTOSIS 2+; PLATELET ESTIMATE NORMAL
[2018-04-25] MEDS: metoprolol tartrate 50mg tablet PO SCH (13:05)
== END 2018-04-25 16:11 | disposition home or self-care (01) | DRG 689 ==
LOC: ER 17:24 → ED HOLD 19:38 → SUR 3N 21:15
PROVIDERS: ADMIT Family Medicine; ATTEND Family Medicine
DX: N39.0 Urinary tract infection, site not specified (principal); N17.0 Acute kidney failure with tubular necrosis; E87.2 Acidosis; E87.1 Hypo-osmolality and hyponatremia; I50.30 Unspecified diastolic (congestive) heart failure; R55 Syncope and collapse; N18.9 Chronic kidney disease, unspecified; G89.29 Other chronic pain; E79.0 Hyperuricemia without signs of inflammatory arthritis and tophaceous disease; M54.9 Dorsalgia, unspecified; D64.9 Anemia, unspecified; E11.22 Type 2 diabetes mellitus with diabetic chronic kidney disease; E86.0 Dehydration; E11.621 Type 2 diabetes mellitus with foot ulcer; L97.529 Non-pressure chronic ulcer of other part of left foot with unspecified severity; I48.91 Unspecified atrial fibrillation; E11.21 Type 2 diabetes mellitus with diabetic nephropathy; Z98.51 Tubal ligation status; Z88.0 Allergy status to penicillin; Z88.8 Allergy status to other drugs, medicaments and biological substances; Z79.899 Other long term (current) drug therapy; Z79.82 Long term (current) use of aspirin; Z79.01 Long term (current) use of anticoagulants; Z79.84 Long term (current) use of oral hypoglycemic drugs; Z87.891 Personal history of nicotine dependence; Z82.3 Family history of stroke; Z82.41 Family history of sudden cardiac death; Z82.49 Family history of ischemic heart disease and other diseases of the circulatory system; Z83.3 Family history of diabetes mellitus
CPT/HCPCS: 36415; 70450; 71045; 76775; 80053; 80061; 80162; 81001; 82272; 82570; 82728; 82948; 83540; 83550; 83605; 83735; 84156; 84300; 84484; 85025; 85610; 85730; 87070; 87088; 87207; 93005; 93306; 94760; 96360; 97116; 97161; 97530; 99285; J0696; J1815; J2270; J7030

== ENCOUNTER 2018-05-15 22:11 | Observation (INO) | payer MEDICARE, OTHER ==
[~2018-05-15] VITALS: Ht 152.4 cm; Wt 127.0 kg
[~2018-05-15 22:11] MED LIST changes: -DIGO250T77 PO; -FURO40TA4 PO; +LACT1CAP26 PO; -LISI-600 PO; -POTA-82 PO; +SAXA5TAB PO; +SODI650T29 PO
[2018-05-15] MEDS: aspirin 81mg tab.chew PO ONE ×2 (22:15→22:30)
[2018-05-15 22:35] LABS: BASOPHILS % (AUTO) 0.5 % (0-1); EOSINOPHILS # (AUTO) 0.2 X10'3 (0-0.9); EOSINOPHILS % (AUTO) 2.9 % (0-6); HEMATOCRIT 29.9 % (35.0-45.0); HEMOGLOBIN 9.7 g/dl (12.0-16.0); LYMPHOCYTES # (AUTO) 0.9 X10'3 (1.1-4.8); LYMPHOCYTES % (AUTO) 13.3 % (21-51); MEAN CORPUSCULAR HEMOGLOBIN 27.5 PG (27.0-31.0); MEAN CORPUSCULAR HGB CONC 32.4 % (33.0-36.5); MONOCYTES # (AUTO) 0.3 X10'3 (0-0.9); NEUTROPHILS # (AUTO) 5.3 X10'3 (1.8-7.7); NEUTROPHILS % (AUTO) 78.3 % (42-75); PLATELET COUNT 361 X10'3 (140-440); RED BLOOD COUNT 3.51 X10'6 (4.20-5.60); RED CELL DISTRIBUTION WIDTH 17.6 % (11.5-14.5); WHITE BLOOD COUNT 6.8 X10'3 (4.5-11.0)
[2018-05-15 22:51] LABS: ALANINE AMINOTRANSFERASE 12 U/L (12-78); ALBUMIN/GLOBULIN RATIO 0.6 (1.1-1.5); ALKALINE PHOSPHATASE 162 IU/L (46-116); ANION GAP 7 (8-16); ASPARTATE AMINO TRANSFERASE 10 U/L (10-37); BILIRUBIN,TOTAL 0.6 MG/DL (0.1-1.0); BLOOD UREA NITROGEN 20 MG/DL (7-18); BUN/CREATININE RATIO 12.4 (6.6-38.0); CALCIUM 8.5 MG/DL (8.5-10.1); CHLORIDE 103 MMOL/L (99-107); CREATININE 1.61 MG/DL (0.40-0.90); GLUCOSE 149 MG/DL (70-104); POTASSIUM 4.8 MMOL/L (3.5-5.1); SODIUM 135 MMOL/L (135-145); TOTAL CARBON DIOXIDE 25.3 MMOL/L (24-32); TOTAL PROTEIN 7.9 G/DL (6.4-8.2); eGFR 33 ML/MIN
[2018-05-15 22:57] LABS: MAGNESIUM 1.9 MG/DL (1.5-2.4)
[2018-05-15] MEDS ORDERED: aspirin 81mg tab.chew PO ONE (23:25)
[2018-05-15] MEDS: nitroGLYCERIN 0.4mg SUBLingual tab SL PRN ×2 (23:27→23:48)
[2018-05-15] MEDS ORDERED: acetaminophen 325mg tablet PO ONE (23:35)
[2018-05-16] VITALS (15 sets, daily range): BP systolic 134–170; BP diastolic 73–95
[2018-05-16] MEDS: nitroGLYCERIN 0.4mg SUBLingual tab SL PRN (00:07)
[2018-05-16] MEDS ORDERED: HYDROcodone/acetaminophen 5mg/325mg tablet PO PRN (00:15)
[2018-05-16] MEDS ORDERED: acetaminophen 325mg tablet PO PRN ×2 (00:15)
[2018-05-16] MEDS ORDERED: nitroGLYCERIN 0.4mg SUBLingual tab SL PRN (00:15)
[2018-05-16] MEDS ORDERED: regadenoson 0.4mg/5ml syringe IV ONE ×3 (00:15→10:32)
[2018-05-16] MEDS ORDERED: ondansetron/PF 4mg/2ml inj IV PRN (00:15)
[2018-05-16] MEDS ORDERED: metoprolol tartrate 1mg/ml inj IV PRN (00:15)
[2018-05-16] MEDS ORDERED: mag hydrox/Alum hydrox/simeth 30ml oral suspension PO PRN (00:15)
[2018-05-16] MEDS ORDERED: aminophylline 250mg/10ml inj. IV PRN (00:15)
[2018-05-16] MEDS ORDERED: magnesium hydroxide 30ml (MOM) UD suspension PO PRN (00:15)
[2018-05-16] MEDS: HYDROcodone/acetaminophen 10/325mg tab PO PRN ×2 (01:43→13:56)
[2018-05-16] MEDS ORDERED: morphine 10mg/ml inj. IV ONE (03:50)
[2018-05-16 07:10] LABS: HEMOGLOBIN A1C 5.6 % (4.5-6.2)
[2018-05-16] MEDS: morphine ER 100mg tablet PO SCH ×2 (09:01→15:08)
[2018-05-16] MEDS ORDERED: aminophylline inj. 10 ML IV ONE (10:32)
[2018-05-16] MEDS ORDERED: PANT-47 PO (14:27)
[2018-05-16] MEDS ORDERED: pantoprazole 40mg Tablet.DR PO SCH (14:30)
[2018-05-16] MEDS ORDERED: morphine 2 MG/ML inj. syringe IV ONE (17:05)
== END 2018-05-16 18:45 | disposition home or self-care (01) ==
LOC: ER 22:11 → ED HOLD 05-16 00:12 → PCU 3S 05-16 01:19
PROVIDERS: ADMIT Hospitalist; ATTEND Hospitalist
DX: R07.89 Other chest pain (principal); I24.9 Acute ischemic heart disease, unspecified; E11.22 Type 2 diabetes mellitus with diabetic chronic kidney disease; N18.3 Chronic kidney disease, stage 3 (moderate); D63.1 Anemia in chronic kidney disease; G89.4 Chronic pain syndrome; K21.9 Gastro-esophageal reflux disease without esophagitis; I48.91 Unspecified atrial fibrillation; E11.65 Type 2 diabetes mellitus with hyperglycemia; E44.1 Mild protein-calorie malnutrition; N17.9 Acute kidney failure, unspecified; I50.32 Chronic diastolic (congestive) heart failure; I25.2 Old myocardial infarction; Z68.43 Body mass index [BMI] 50.0-59.9, adult; R42 Dizziness and giddiness; I95.1 Orthostatic hypotension; Z87.891 Personal history of nicotine dependence; Z88.0 Allergy status to penicillin; Z79.899 Other long term (current) drug therapy; Z79.4 Long term (current) use of insulin
CPT/HCPCS: 36415; 71045; 78452; 80053; 82948; 83036; 83735; 83880; 84484; 85025; 87070; 93005; 93017; 96374; 96375; 96376; 99285; A9500; G0378; J0280; J2270

== ENCOUNTER 2018-06-25 19:34 | Inpatient (IN) | payer MEDICARE, OTHER ==
[~2018-06-25] VITALS: Ht 182.9 cm; Wt 136.4 kg
[~2018-06-25 19:34] MED LIST changes: +PANT-47 PO; -SAXA5TAB PO; -SODI650T29 PO
[2018-06-25] MEDS ORDERED: ketorolac trometh. 30mg/ml inj. IV ONE (19:45)
[2018-06-25] MEDS ORDERED: normal saline 1000ML IV soln IVB ONE ×2 (19:45→21:15)
--- NOTE | 2018-06-25 20:00 | NUR ---
Multiple attempts to start IV have not been successful as of yet, have requested assistance from another RN.
[2018-06-25] MEDS ORDERED: levoFLOXACIN-Levaquin 750MG/D5 150 ML IV STA (20:13)
[2018-06-25] MEDS ORDERED: CefTRIAXone 2gm/D5W 50ml 50 ML IV ONE (20:15)
[2018-06-25 20:42] LABS: BASOPHILS % (AUTO) 0 % (0-1); EOSINOPHILS % (AUTO) 0 % (0-6); HEMOGLOBIN 8.5 g/dl (12.0-16.0); LYMPHOCYTES # (AUTO) 0.2 X10'3 (1.1-4.8); LYMPHOCYTES % (AUTO) 1.9 % (21-51); MEAN CORPUSCULAR HEMOGLOBIN 26.4 PG (27.0-31.0); MEAN CORPUSCULAR HGB CONC 32.8 % (33.0-36.5); MEAN CORPUSCULAR VOLUME 80.5 FL (78-98); MEAN PLATELET VOLUME 7.3 FL (7.4-10.4); MONOCYTES # (AUTO) 0.2 X10'3 (0-0.9); MONOCYTES % (AUTO) 2.1 % (2-12); NEUTROPHILS # (AUTO) 9.5 X10'3 (1.8-7.7); PLATELET COUNT 187 X10'3 (140-440); RED BLOOD COUNT 3.23 X10'6 (4.20-5.60); RED CELL DISTRIBUTION WIDTH 15.9 % (11.5-14.5); WHITE BLOOD COUNT 9.9 X10'3 (4.5-11.0)
[2018-06-25 20:54] LABS: ALANINE AMINOTRANSFERASE 20 U/L (12-78); ALBUMIN 2.5 G/DL (3.4-5.0); ALBUMIN/GLOBULIN RATIO 0.5 (1.1-1.5); ALKALINE PHOSPHATASE 140 IU/L (46-116); ANION GAP 13 (8-16); ASPARTATE AMINO TRANSFERASE 21 U/L (10-37); BILIRUBIN,TOTAL 1.3 MG/DL (0.1-1.0); BLOOD UREA NITROGEN 31 MG/DL (7-18); BUN/CREATININE RATIO 13.6 (6.6-38.0); CHLORIDE 98 MMOL/L (99-107); CREATININE 2.28 MG/DL (0.40-0.90); GLUCOSE 120 MG/DL (70-104); POTASSIUM 4.9 MMOL/L (3.5-5.1); SODIUM 132 MMOL/L (135-145); TOTAL CARBON DIOXIDE 21.4 MMOL/L (24-32); TOTAL PROTEIN 7.3 G/DL (6.4-8.2); TROPONIN I 0.11 NG/ML (0.0-0.05); eGFR 22 ML/MIN
[2018-06-25 20:55] LABS: CLARITY,URINE SLIGHTLY CLOUDY (Clear); COLOR,URINE YELLOW (Yellow); GLUCOSE, URINE NEGATIVE (Neg); KETONES,URINE TRACE mg/dl (Neg); LEUKOCYTE ESTERASE ,URINE SMALL (Neg); NITRITES, URINE POSITIVE (Neg); OCCULT BLOOD,URINE MODERATE (Neg); PROTEIN,URINE 100 mg/dl (Neg)
[2018-06-25 20:55] LABS: INR 1.3 INR; PARTIAL THROMBOPLASTIN TIME 43 SECONDS (22-32); PROTHROMBIN TIME 13.4 SECONDS (9.0-12.0)
[2018-06-25 20:56] LABS: UA COLLECTION TYPE STRAIGHT CATH
[2018-06-25] MEDS ORDERED: LORazepam 2 mg/ml vial IV ONE (21:00)
[2018-06-25] MEDS ORDERED: temazepam 15mg capsule PO PRN (21:00)
[2018-06-25 21:03] LABS: BACTERIA,URINE 4+ /HPF (Neg); SQUAMOUS EPITHELIAL CELL,UR MODERATE /LPF (FEW); WBC,URINE TNTC /HPF (0-4)
[2018-06-25 21:04] LABS: RBC,URINE 0-2 /HPF (0-2)
[2018-06-25] MEDS ORDERED: glucagon, human recombinant 1mg kit SUBCUT PRN (22:15)
[2018-06-25] MEDS ORDERED: MESSAGE TO PHARMACY PO ONE (22:15)
[2018-06-25] MEDS ORDERED: dextrose 50%-water 50ml dispensing syringe IV PRN ×2 (22:15)
[2018-06-25] MEDS ORDERED: dextrose ORAL solution 15 GM/59 ML bottle PO PRN ×2 (22:15)
[2018-06-25] MEDS ORDERED: insulin Lispro (HumaLOG) vial - multi-dose SQ SCH (22:15)
[2018-06-25] MEDS ORDERED: HYDROmorphone 1 mg/ml syringe IV PRN (22:20)
[2018-06-25] MEDS ORDERED: magnesium hydroxide 30ml (MOM) UD suspension PO PRN (22:20)
[2018-06-25] MEDS ORDERED: acetaminophen 325mg tablet PO PRN ×2 (22:20)
[2018-06-25] MEDS ORDERED: mag hydrox/Alum hydrox/simeth 30ml oral suspension PO PRN (22:20)
[2018-06-25] MEDS ORDERED: ondansetron/PF 4mg/2ml inj IV PRN (22:20)
[2018-06-25] MEDS ORDERED: metoclopramide 5 mg/ml inj IV PRN (22:20)
[2018-06-25] MEDS ORDERED: acetaminophen 650mg rectal suppository RC PRN (22:20)
[2018-06-25] MEDS ORDERED: diphenhydrAMINE 50 mg/ml inj IV PRN (22:20)
[2018-06-25] MEDS ORDERED: bisacodyl 10mg suppository rectal RC PRN (22:20)
[2018-06-25] MEDS: HYDROcodone/acetaminophen 10/325mg tab PO PRN (22:36)
[2018-06-25 22:50] LABS: CREATINE KINASE 50 U/L (26-192); LIPASE 54 U/L (73-393); MAGNESIUM 1.9 MG/DL (1.5-2.4); PHOSPHORUS 3.2 MG/DL (2.3-4.5)
--- NOTE | 2018-06-25 23:20 | NUR ---
Dr. Lechuga notified of patient's blood pressure, order's rec'd.
[2018-06-25] MEDS ORDERED: albumin (human) 25% 100ml IV 100 ML IV ONE (23:35)
[2018-06-26] VITALS (26 sets, daily range): BP systolic 78–154; BP diastolic 35–92
--- NOTE | 2018-06-26 01:58 | NUR ---
Dr. Lechuga notified of patient's blood pressure, order's rec'd.
[2018-06-26] MEDS ORDERED: DOPamine 400mg/D5W 250ml 250 ML IV SCH ×2 (02:00→09:05)
[2018-06-26] MEDS ORDERED: albuterol 2.5 MG/3 ML nebule NEB PRN (02:40)
--- NOTE | 2018-06-26 04:00 | NUR ---
Blood pressure has been labile, with drcreases d/t freq bending arm resulting in brief pauses in dopamine infusion, but trends back up when started. B/P has been trending up over-all with patient indicating that she is feeling better. Will monitor.
--- NOTE | 2018-06-26 04:33 | NUR ---
pt on bed vazquez as she needs to void
--- NOTE | 2018-06-26 04:37 | NUR ---
Dr Lechuga notified via telephone that pts bp 82/44, instructed to increase dose to 15mcg/kg/min and that I may place a travis cath.
--- NOTE | 2018-06-26 06:59 | NUR ---
Patient in room ED 10. Pt will be transferred [id number] on tele. I have received report from KIKA Otto in the ER and had the opportunity to ask questions and assume patient care.
[2018-06-26 07:52] LABS: BASOPHILS % (AUTO) 0 % (0-1); EOSINOPHILS % (AUTO) 0.3 % (0-6); LYMPHOCYTES # (AUTO) 0.2 X10'3 (1.1-4.8); LYMPHOCYTES % (AUTO) 4.2 % (21-51); MEAN CORPUSCULAR HEMOGLOBIN 26.5 PG (27.0-31.0); MEAN CORPUSCULAR HGB CONC 32.7 % (33.0-36.5); MEAN CORPUSCULAR VOLUME 81.1 FL (78-98); MEAN PLATELET VOLUME 6.9 FL (7.4-10.4); MONOCYTES # (AUTO) 0.1 X10'3 (0-0.9); MONOCYTES % (AUTO) 2.2 % (2-12); NEUTROPHILS # (AUTO) 5.3 X10'3 (1.8-7.7); NEUTROPHILS % (AUTO) 93.3 % (42-75); PLATELET COUNT 163 X10'3 (140-440); RED BLOOD COUNT 2.58 X10'6 (4.20-5.60); RED CELL DISTRIBUTION WIDTH 15.6 % (11.5-14.5); WHITE BLOOD COUNT 5.7 X10'3 (4.5-11.0)
[2018-06-26 07:58] LABS: HEMATOCRIT 20.9 % (35.0-45.0); HEMOGLOBIN 6.9 g/dl (12.0-16.0)
[2018-06-26] MEDS: aspirin 81mg tab.chew PO SCH (07:58)
[2018-06-26] MEDS: duloxetine 30mg CAPSULE.DR PO SCH (07:58)
[2018-06-26] MEDS: docusate sod 100mg capsule PO SCH ×2 (07:58→20:00)
[2018-06-26] MEDS ORDERED: furosemide 40mg/4ml inj IV SCH (08:00)
[2018-06-26] MEDS ORDERED: apixaban 5mg tablet PO SCH (08:00)
[2018-06-26] MEDS ORDERED: nitroGLYCERIN 0.1mg/hour patch TD SCH (08:00)
--- NOTE | 2018-06-26 08:04 | NUR ---
PAGER ID: [phone] MESSAGE: [id number] FLOR Miranda/Ruth WENT FROM 8.5 /26.0 TO 6.9 / 20.9 MEME SANTIAGO [id number] Addendum: 06/26/18 at 0804 by Meme Lowe RN Amended: Links added.
--- NOTE | 2018-06-26 08:10 | NUR ---
Pt vomited 100mls emesis green/yellow liquid. Zofran given.
[2018-06-26 08:19] LABS: ALANINE AMINOTRANSFERASE 18 U/L (12-78); ALBUMIN 2.1 G/DL (3.4-5.0); ALBUMIN/GLOBULIN RATIO 0.5 (1.1-1.5); ALKALINE PHOSPHATASE 98 IU/L (46-116); ANION GAP 8 (8-16); ANISOCYTOSIS 1+; ASPARTATE AMINO TRANSFERASE 23 U/L (10-37); BILIRUBIN,TOTAL 1.2 MG/DL (0.1-1.0); BLOOD UREA NITROGEN 38 MG/DL (7-18); BUN/CREATININE RATIO 15.8 (6.6-38.0); CALCIUM 7.7 MG/DL (8.5-10.1); CHLORIDE 103 MMOL/L (99-107); CHOL/HDL RATIO 10.5 (0.00-4.99); CHOLESTEROL 84 MG/DL (0-200); CREATININE 2.41 MG/DL (0.40-0.90); GLUCOSE 104 MG/DL (70-104); HDL CHOLESTEROL 8 MG/DL (35-60); LDL CHOLESTEROL 38 MG/DL (50-100); MICROCYTOSIS 1+; PLATELET ESTIMATE NORMAL; POTASSIUM 4.3 MMOL/L (3.5-5.1); SODIUM 134 MMOL/L (135-145); TOTAL CARBON DIOXIDE 22.7 MMOL/L (24-32); TOTAL CELLS COUNTED 100; TOTAL PROTEIN 6.1 G/DL (6.4-8.2); TRIGLYCERIDES 154 MG/DL (20-135); eGFR 21 ML/MIN
[2018-06-26] MEDS: morphine 4 MG/ML inj SYRINge IV PRN ×3 (08:19→22:48)
[2018-06-26 08:20] LABS: HYPOCHROMASIA 1+; POLYCHROMASIA FEW
[2018-06-26] MEDS: normal saline 1000ml 1,000 ML IV SCH ×3 (09:58→22:48)
--- NOTE | 2018-06-26 10:00 | NUR ---
Dr. Gibbons saw patient. Patient will receive 2 units of blood, transfusion consent form in process.. Protonix drip ordered. Patients dopamine drip is now [facility]. NS@150.
--- NOTE | 2018-06-26 10:00 | NUR ---
discussed IV management with charge nurse. pt has 2 extension PIVs in upper arms. Dopamine and blood infusing, will administer protonix drip after blood is transfusing. Volume is more important at this time.
--- NOTE | 2018-06-26 10:25 | NUR ---
Paged Dr Gibbons: PAGER ID: [phone] MESSAGE: Cecily Nuñez, Magali [id number], transfusion consent is ready. Where are you? I can bring it to you. Thanks Viviana [phone]
--- NOTE | 2018-06-26 11:15 | NUR ---
per dr. segundo ,will decrease dopamine drip to 10 mcgs.
--- NOTE | 2018-06-26 12:28 | NUR ---
BP 138/79, dopamine decreased to 8 mcgs. Blood transfusion starting.
--- NOTE | 2018-06-26 12:49 | NUR ---
critical lab paged to dr segundo PAGER ID: [phone] MESSAGE: Blaze Segundo, [facility] 1364I. blood cultures came back POSITIVE for gram positive cocci . thanks, pj [phone]
--- NOTE | 2018-06-26 12:54 | NUR ---
BP 124/69, dopamine drip decreased to 7mcgs. will advance diet to pureed diet for dinner
[2018-06-26] MEDS: HYDROcodone/acetaminophen 10/325mg tab PO PRN (13:03)
--- NOTE | 2018-06-26 14:39 | NUR ---
Extended PIV inserted to the left upper arm using ultrasound. Alma salinas. Addendum: 06/26/18 at 1440 by Eileen Porras RN Amended: Links added.
--- NOTE | 2018-06-26 15:11 | NUR ---
PER DR. MATHEW, DECREASED DOPAMINE DRIP TO 5 MCG
[2018-06-26] MEDS: pantoprazole 40MG/NS 100ML BAG 100 ML IV SCH ×3 (16:00→21:00)
--- NOTE | 2018-06-26 16:38 | NUR ---
PT RECEIVED 2 UNITS OF BLOOD, VITALS STABLE, NO COMPLICATIONS. PATIENT IS NOW RESTING IN BED.
--- NOTE | 2018-06-26 16:48 | NUR ---
Paged Dr. Gibbons about critical lab: PAGER ID: [phone] MESSAGE: Susie razo 3028A, FYI, another positive blood culture, gram neg. cocci in clusters. 19 hrs to detect. thanks, pj [phone]
--- NOTE | 2018-06-26 18:05 | NUR ---
PER DR. MATHEW, DECREASED DOPAMINE DRIP TO 3MCGS. BP 129/ 75
--- NOTE | 2018-06-26 18:33 | NUR ---
Problems reprioritized. Patient report given, questions answered & plan of care reviewed with KIKA PINON.
--- NOTE | 2018-06-26 19:32 | NUR ---
BP 87/54 AND 84/56 , DOPAMINE INCREASED BY 2 MCGS. CURRENTLY RUNNING 5 MCGS. PT STATES SHE FEELS FINE, ASYMPTOMATIC. WILL CONTINUE TO MONITOR BLOOD PRESSURE.
[2018-06-26 20:18] LABS: BASOPHILS % (AUTO) 0 % (0-1); EOSINOPHILS % (AUTO) 0 % (0-6); HEMATOCRIT 25.5 % (35.0-45.0); HEMOGLOBIN 8.4 g/dl (12.0-16.0); LYMPHOCYTES # (AUTO) 0.3 X10'3 (1.1-4.8); LYMPHOCYTES % (AUTO) 5.7 % (21-51); MEAN CORPUSCULAR HEMOGLOBIN 26.8 PG (27.0-31.0); MEAN CORPUSCULAR HGB CONC 32.8 % (33.0-36.5); MEAN CORPUSCULAR VOLUME 81.5 FL (78-98); MEAN PLATELET VOLUME 7.6 FL (7.4-10.4); MONOCYTES # (AUTO) 0.1 X10'3 (0-0.9); MONOCYTES % (AUTO) 1.7 % (2-12); NEUTROPHILS # (AUTO) 4.6 X10'3 (1.8-7.7); NEUTROPHILS % (AUTO) 92.6 % (42-75); PLATELET COUNT 154 X10'3 (140-440); RED BLOOD COUNT 3.13 X10'6 (4.20-5.60); RED CELL DISTRIBUTION WIDTH 15.7 % (11.5-14.5)
[2018-06-26 20:43] LABS: HIV ANTIBODY 1&2 RAPID NON-REACTIVE (Neg)
[2018-06-26] MEDS: insulin glargine (Lantus) pen - multi-dose SQ SCH (21:00)
--- NOTE | 2018-06-26 21:36 | NUR ---
Orders by Dr. Lechuga to increase Dobutamine gtt from 5mcg to 10mcg. Will continue to monitor pt BP
--- NOTE | 2018-06-26 21:36 | NUR ---
PAGER ID: [phone] MESSAGE: Susie Baer pt in [id number] last BP (61). Currently on dobutamine gtt at 5mcg. May I have orders to increase? Catherine U [id number]
[2018-06-26] MEDS: traZODone 50mg tablet PO PRN (22:48)
--- NOTE | 2018-06-26 23:45 | NUR ---
correction pt is on a dopamine drip not a dobutamine drip. . Earlier tonight pt's extended IV on the right arm was exposed. Let charge nurse know. In attempts to salvage the site we covered with tegaderm and loose coband. Site appeared to still be usable. While running at 10mcg BP had dropped to the 70s systolic with MAP as low as 47. Upon assessment pts arm showed signs of extravasation. Dobutamine switched to left side extended, retook bp and it came back up; 90/75 (79)
--- NOTE | 2018-06-26 23:47 | NUR ---
charge nurse aware. removing right side extended iv and placing warm compress.
[2018-06-27] VITALS (16 sets, daily range): BP systolic 65–146; BP diastolic 23–77
[2018-06-27] MEDS: pantoprazole 40MG/NS 100ML BAG 100 ML IV SCH (01:00)
[2018-06-27] MEDS ORDERED: DOPamine 400mg/D5W 250ml 250 ML IV SCH ×3 (02:00→21:05)
--- NOTE | 2018-06-27 03:14 | NUR ---
PAGER ID: [phone] MESSAGE: MELVIN Nuñez Susie in PCU 3028A admitted with Afib with RVR, sepsis, has had sustained HR in 120s to 130s. She has NS at 150 ml and dopamine gtt at 10mcg. Metoprolol held due to sepsis. Orders to control HR? Catherine [phone]
--- NOTE | 2018-06-27 03:20 | NUR ---
Per Dr. Lechuga, decrease dopamine gtt to 5mcg
--- NOTE | 2018-06-27 03:54 | NUR ---
PAGER ID: [phone] MESSAGE: Susie Baer in [facility] [id number] dopamine decreased from 10mcg to 5mcg and BP came down from 149/69 to 87/53 (60). HR still in 110's. Catherine [facility] [phone]
[2018-06-27] MEDS ORDERED: albumin (human) 25% 100ml IV 100 ML IV ONE (04:00)
--- NOTE | 2018-06-27 04:01 | NUR ---
Per Dr. Lechuga, new order for one time dose of albumin iv
[2018-06-27] MEDS: normal saline 1000ml 1,000 ML IV SCH ×3 (04:55→18:15)
[2018-06-27 05:47] LABS: ALANINE AMINOTRANSFERASE 29 U/L (12-78); ALBUMIN 2.2 G/DL (3.4-5.0); ALBUMIN/GLOBULIN RATIO 0.5 (1.1-1.5); ALKALINE PHOSPHATASE 150 IU/L (46-116); ANION GAP 11 (8-16); ASPARTATE AMINO TRANSFERASE 36 U/L (10-37); BLOOD UREA NITROGEN 41 MG/DL (7-18); BUN/CREATININE RATIO 17.9 (6.6-38.0); CALCIUM 7.5 MG/DL (8.5-10.1); CHLORIDE 100 MMOL/L (99-107); CREATININE 2.29 MG/DL (0.40-0.90); GLUCOSE 193 MG/DL (70-104); SODIUM 132 MMOL/L (135-145); TOTAL CARBON DIOXIDE 20.6 MMOL/L (24-32); TOTAL PROTEIN 6.4 G/DL (6.4-8.2); eGFR 22 ML/MIN
[2018-06-27 05:51] LABS: POTASSIUM 4.7 MMOL/L (3.5-5.1)
[2018-06-27 05:56] LABS: HEMATOCRIT 24.7 % (35.0-45.0); HEMOGLOBIN 8.2 g/dl (12.0-16.0); MEAN CORPUSCULAR HEMOGLOBIN 27.4 PG (27.0-31.0); MEAN CORPUSCULAR HGB CONC 33.3 % (33.0-36.5); MEAN CORPUSCULAR VOLUME 82.2 FL (78-98); MEAN PLATELET VOLUME 8.2 FL (7.4-10.4); PLATELET COUNT 165 X10'3 (140-440); RED CELL DISTRIBUTION WIDTH 16.2 % (11.5-14.5)
--- NOTE | 2018-06-27 06:00 | NUR ---
Problems reprioritized. Patient report given, questions answered & plan of care reviewed with Lexii ANAND.
--- NOTE | 2018-06-27 06:20 | NUR ---
Patient in room PCU 3028. I have received report from KIKA Galan and had the opportunity to ask questions and assume patient care.
[2018-06-27 07:12] LABS: WHITE BLOOD COUNT 5.2 X10'3 (4.5-11.0)
[2018-06-27] MEDS ORDERED: levoFLOXACIN 750MG TABLET PO SCH (08:00)
[2018-06-27 08:03] LABS: ANISOCYTOSIS 1+; PLATELET ESTIMATE NORMAL; POIKILOCYTOSIS 1+; POLYCHROMASIA 1+; ROULEAUX 1+; TOTAL CELLS COUNTED 100
[2018-06-27 08:04] LABS: HYPOCHROMASIA 1+
--- NOTE | 2018-06-27 08:45 | NUR ---
Received order from Dr. Gibbons to decrease dobutamine gtt to 4mcg/hr.
[2018-06-27] MEDS: docusate sod 100mg capsule PO SCH ×2 (09:27→19:58)
[2018-06-27] MEDS: duloxetine 30mg CAPSULE.DR PO SCH (09:27)
[2018-06-27] MEDS: aspirin 81mg tab.chew PO SCH (09:28)
[2018-06-27] MEDS: morphine 4 MG/ML inj SYRINge IV PRN (09:50)
[2018-06-27] MEDS: doxycycline inj 100 MG in normal saline 100ml IV soln 100 ML IV SCH ×2 (10:19→19:59)
--- NOTE | 2018-06-27 18:30 | NUR ---
Problems reprioritized. Patient report given, questions answered & plan of care reviewed with KIKA Ortiz.
[2018-06-27] MEDS ORDERED: digoxin 250mcg/ml 2ml ampule IV ONE (19:00)
[2018-06-27] MEDS: pantoprazole 40mg Tablet.DR PO SCH (19:58)
[2018-06-27] MEDS: traZODone 50mg tablet PO PRN (19:59)
[2018-06-27] MEDS: insulin glargine (Lantus) pen - multi-dose SQ SCH (21:00)
[2018-06-28] VITALS (21 sets, daily range): BP systolic 85–143; BP diastolic 41–79
[2018-06-28] MEDS: normal saline 1000ml 1,000 ML IV SCH ×3 (00:55→09:12)
[2018-06-28] MEDS: diphenhydrAMINE 25mg capsule PO PRN ×2 (01:19→07:28)
[2018-06-28] MEDS: HYDROcodone/acetaminophen 10/325mg tab PO PRN (01:20)
[2018-06-28 03:07] LABS: ALANINE AMINOTRANSFERASE 26 U/L (12-78); ALBUMIN 2.2 G/DL (3.4-5.0); ALBUMIN/GLOBULIN RATIO 0.5 (1.1-1.5); ALKALINE PHOSPHATASE 161 IU/L (46-116); ANION GAP 10 (8-16); ASPARTATE AMINO TRANSFERASE 25 U/L (10-37); BILIRUBIN,TOTAL 1.2 MG/DL (0.1-1.0); BLOOD UREA NITROGEN 35 MG/DL (7-18); CALCIUM 7.7 MG/DL (8.5-10.1); CHLORIDE 101 MMOL/L (99-107); CREATININE 1.94 MG/DL (0.40-0.90); GLUCOSE 111 MG/DL (70-104); POTASSIUM 4.5 MMOL/L (3.5-5.1); SODIUM 132 MMOL/L (135-145); TOTAL PROTEIN 6.6 G/DL (6.4-8.2); eGFR 27 ML/MIN
[2018-06-28 03:29] LABS: BASOPHILS % (AUTO) 0 % (0-1); EOSINOPHILS # (AUTO) 0.1 X10'3 (0-0.9); EOSINOPHILS % (AUTO) 1.3 % (0-6); HEMOGLOBIN 8.4 g/dl (12.0-16.0); LYMPHOCYTES # (AUTO) 0.5 X10'3 (1.1-4.8); LYMPHOCYTES % (AUTO) 9.1 % (21-51); MEAN CORPUSCULAR HEMOGLOBIN 26.6 PG (27.0-31.0); MEAN CORPUSCULAR HGB CONC 32.3 % (33.0-36.5); MEAN CORPUSCULAR VOLUME 82.3 FL (78-98); MONOCYTES # (AUTO) 0.4 X10'3 (0-0.9); MONOCYTES % (AUTO) 7.3 % (2-12); NEUTROPHILS # (AUTO) 4.3 X10'3 (1.8-7.7); NEUTROPHILS % (AUTO) 82.3 % (42-75); PLATELET COUNT 160 X10'3 (140-440); RED BLOOD COUNT 3.15 X10'6 (4.20-5.60); WHITE BLOOD COUNT 5.3 X10'3 (4.5-11.0)
--- NOTE | 2018-06-28 06:00 | NUR ---
Problems reprioritized. Patient report given, questions answered & plan of care reviewed with Edna ANAND.
--- NOTE | 2018-06-28 06:14 | NUR ---
Patient in room PCU 3028. I have received report from KIKA Ortiz and had the opportunity to ask questions and assume patient care.
--- NOTE | 2018-06-28 06:15 | NUR ---
Problems reprioritized. Patient report given, questions answered & plan of care reviewed with Becki ANAND.
--- NOTE | 2018-06-28 06:18 | NUR ---
Patient in room PCU 3028. I have received report from KIKA DAMON and had the opportunity to ask questions and assume patient care.
[2018-06-28] MEDS: doxycycline inj 100 MG in normal saline 100ml IV soln 100 ML IV SCH (07:28)
[2018-06-28] MEDS: docusate sod 100mg capsule PO SCH ×2 (07:28→19:44)
[2018-06-28] MEDS: duloxetine 30mg CAPSULE.DR PO SCH (07:29)
[2018-06-28] MEDS: pantoprazole 40mg Tablet.DR PO SCH ×2 (07:29→19:44)
[2018-06-28] MEDS: aspirin 81mg tab.chew PO SCH (07:29)
[2018-06-28] MEDS: digoxin 250mcg/ml 2ml ampule IV SCH (07:33)
[2018-06-28 08:08] LABS: HBSAG SCREEN Negative (Negative); HEPATITIS C ANTIBODY <0.1 s/co ratio (0.0-0.9)
[2018-06-28] MEDS: morphine 4 MG/ML inj SYRINge IV PRN (08:20)
[2018-06-28] MEDS ORDERED: DOPamine 400mg/D5W 250ml 250 ML IV SCH ×2 (09:05)
[2018-06-28] MEDS: DOPamine 400mg/D5W 250ml 250 ML IV SCH ×2 (09:11→14:51)
--- NOTE | 2018-06-28 11:00 | NUR ---
Pt refused travis care this morning.
[2018-06-28] MEDS: vancomycin/NS 1 GM ADD-VANTAGE 250 ML IV SCH ×2 (11:57→14:52)
--- NOTE | 2018-06-28 18:21 | NUR ---
Problems reprioritized. Patient report given, questions answered & plan of care reviewed with KIKA MCKEON SBAR AND AT BEDSIDE.
[2018-06-28] MEDS: apixaban 5mg tablet PO SCH (19:44)
[2018-06-28] MEDS: traZODone 50mg tablet PO PRN (20:36)
[2018-06-28] MEDS: insulin glargine (Lantus) pen - multi-dose SQ SCH (20:39)
[2018-06-29] VITALS (18 sets, daily range): BP systolic 83–146; BP diastolic 49–112
[2018-06-29] MEDS ORDERED: vancomycin inj 1,250 MG in normal saline 250ml IV soln 250 ML IV SCH (01:00)
[2018-06-29] MEDS: HYDROcodone/acetaminophen 10/325mg tab PO PRN ×3 (03:03→21:19)
--- NOTE | 2018-06-29 06:34 | NUR ---
Problems reprioritized. Patient report given, questions answered & plan of care reviewed with TatumRN.
[2018-06-29] MEDS: normal saline 1000ml 1,000 ML IV SCH ×2 (08:54→22:14)
[2018-06-29] MEDS ORDERED: DOPamine 400MG/D5W 250 ML -PCU ONLY IV SCH (09:30)
[2018-06-29] MEDS: apixaban 5mg tablet PO SCH ×2 (10:10→21:17)
[2018-06-29] MEDS: pantoprazole 40mg Tablet.DR PO SCH ×2 (10:10→20:00)
[2018-06-29] MEDS: duloxetine 30mg CAPSULE.DR PO SCH (10:10)
[2018-06-29] MEDS: docusate sod 100mg capsule PO SCH ×2 (10:11→21:17)
[2018-06-29] MEDS: aspirin 81mg tab.chew PO SCH (10:11)
[2018-06-29] MEDS: digoxin 250mcg/ml 2ml ampule IV SCH (10:12)
[2018-06-29 11:32] LABS: BASOPHILS % (AUTO) 0 % (0-1); EOSINOPHILS # (AUTO) 0.1 X10'3 (0-0.9); EOSINOPHILS % (AUTO) 2.4 % (0-6); HEMATOCRIT 25.3 % (35.0-45.0); HEMOGLOBIN 8.1 g/dl (12.0-16.0); LYMPHOCYTES # (AUTO) 0.6 X10'3 (1.1-4.8); LYMPHOCYTES % (AUTO) 9.3 % (21-51); MEAN CORPUSCULAR HEMOGLOBIN 26.4 PG (27.0-31.0); MEAN CORPUSCULAR HGB CONC 32.1 % (33.0-36.5); MEAN CORPUSCULAR VOLUME 82.2 FL (78-98); MONOCYTES # (AUTO) 0.2 X10'3 (0-0.9); MONOCYTES % (AUTO) 2.5 % (2-12); NEUTROPHILS # (AUTO) 5.3 X10'3 (1.8-7.7); NEUTROPHILS % (AUTO) 85.8 % (42-75); PLATELET COUNT 178 X10'3 (140-440); RED BLOOD COUNT 3.08 X10'6 (4.20-5.60); RED CELL DISTRIBUTION WIDTH 17.3 % (11.5-14.5); WHITE BLOOD COUNT 6.2 X10'3 (4.5-11.0)
--- NOTE | 2018-06-29 11:48 | NUR ---
Initial: Pt admitted with PNA, Sepsis secondary to UTI E.coli positive, on abx for tx. Pt also with chronic LLE wound that looks clean with no surrounding erythema per MD progress notes. Pt is currently on a heart healthy CHO controlled diet with documented PO intake 75-100% likely meeting nutrient needs with adequate protein to aid in wound healing. LBM 06/25, pt with routine Colace and MoM PRN last given 06/28. Will continue to follow and monitor need for ONS and additional bowel care. Recommendations: 1) Continue with regular diet 2) Monitor need for ONS 3) Monitor need for additional bowel care 4) Wt per rx Addendum: 06/29/18 at [address] Amended: Links added.
[2018-06-29 12:49] LABS: ALANINE AMINOTRANSFERASE 22 U/L (12-78); ALBUMIN 2.1 G/DL (3.4-5.0); ALBUMIN/GLOBULIN RATIO 0.5 (1.1-1.5); ALKALINE PHOSPHATASE 187 IU/L (46-116); ANION GAP 8 (8-16); ASPARTATE AMINO TRANSFERASE 15 U/L (10-37); BILIRUBIN,TOTAL 0.7 MG/DL (0.1-1.0); BLOOD UREA NITROGEN 28 MG/DL (7-18); BUN/CREATININE RATIO 14.9 (6.6-38.0); CALCIUM 7.9 MG/DL (8.5-10.1); CHLORIDE 103 MMOL/L (99-107); CREATININE 1.88 MG/DL (0.40-0.90); GLUCOSE 132 MG/DL (70-104); POTASSIUM 4.7 MMOL/L (3.5-5.1); SODIUM 134 MMOL/L (135-145); TOTAL CARBON DIOXIDE 22.9 MMOL/L (24-32); TOTAL PROTEIN 6.7 G/DL (6.4-8.2); eGFR 28 ML/MIN
[2018-06-29] MEDS: CefTRIAXone 2gm/D5W 50ml 50 ML IV SCH (13:22)
--- NOTE | 2018-06-29 17:00 | NUR ---
PATIENT VOIDED 800 ML ,S/P DC'D F/C, WITHOUT DIFFICULTY. DOPAMINE GTT TURNED OFF PER DR. PRIYANKA BOSS. NO C/O AT THIS TIME. Addendum: 06/29/18 at 1902 by Leeanne Sampson RN Amended: Links added.
[2018-06-29] MEDS: insulin glargine (Lantus) pen - multi-dose SQ SCH (21:00)
[2018-06-29] MEDS: ketoconazole 2% cream 15gm TP SCH (21:22)
[2018-06-29] MEDS: traZODone 50mg tablet PO PRN (21:34)
[2018-06-30 03:00] VITALS: BP 151/51
[2018-06-30 03:35] LABS: OCCULT BLOOD STOOL POSITIVE (Neg)
[2018-06-30 05:43] LABS: BASOPHILS % (AUTO) 0.1 % (0-1); EOSINOPHILS # (AUTO) 0.2 X10'3 (0-0.9); EOSINOPHILS % (AUTO) 3.8 % (0-6); HEMATOCRIT 26.2 % (35.0-45.0); HEMOGLOBIN 8.4 g/dl (12.0-16.0); LYMPHOCYTES # (AUTO) 0.8 X10'3 (1.1-4.8); LYMPHOCYTES % (AUTO) 13.6 % (21-51); MEAN CORPUSCULAR HEMOGLOBIN 26.2 PG (27.0-31.0); MEAN CORPUSCULAR VOLUME 81.8 FL (78-98); MEAN PLATELET VOLUME 7.5 FL (7.4-10.4); MONOCYTES # (AUTO) 0.5 X10'3 (0-0.9); MONOCYTES % (AUTO) 8.5 % (2-12); NEUTROPHILS # (AUTO) 4.1 X10'3 (1.8-7.7); PLATELET COUNT 185 X10'3 (140-440); RED CELL DISTRIBUTION WIDTH 16.5 % (11.5-14.5); WHITE BLOOD COUNT 5.5 X10'3 (4.5-11.0)
[2018-06-30 05:58] LABS: ALANINE AMINOTRANSFERASE 17 U/L (12-78); ALBUMIN/GLOBULIN RATIO 0.5 (1.1-1.5); ALKALINE PHOSPHATASE 150 IU/L (46-116); ANION GAP 7 (8-16); ASPARTATE AMINO TRANSFERASE 13 U/L (10-37); BILIRUBIN,TOTAL 0.5 MG/DL (0.1-1.0); BLOOD UREA NITROGEN 27 MG/DL (7-18); BUN/CREATININE RATIO 14.8 (6.6-38.0); CHLORIDE 105 MMOL/L (99-107); CREATININE 1.82 MG/DL (0.40-0.90); GLUCOSE 123 MG/DL (70-104); POTASSIUM 4.3 MMOL/L (3.5-5.1); SODIUM 135 MMOL/L (135-145); TOTAL CARBON DIOXIDE 22.8 MMOL/L (24-32); TOTAL PROTEIN 6.3 G/DL (6.4-8.2); eGFR 29 ML/MIN
[2018-06-30 06:00] VITALS: BP 105/62
--- NOTE | 2018-06-30 06:27 | NUR ---
Problems reprioritized. Patient report given, questions answered & plan of care reviewed with KIKA Silva.
--- NOTE | 2018-06-30 06:28 | NUR ---
Patient in room PCU 3028. I have received report from Oliverio RN and had the opportunity to ask questions and assume patient care. Pt awake and in no distress at time of transfer.
[2018-06-30] MEDS: pantoprazole 40mg Tablet.DR PO SCH ×2 (07:33→21:11)
[2018-06-30] MEDS: aspirin 81mg tab.chew PO SCH (07:33)
[2018-06-30] MEDS: docusate sod 100mg capsule PO SCH ×2 (07:33→20:00)
[2018-06-30] MEDS: apixaban 5mg tablet PO SCH ×2 (07:33→21:11)
[2018-06-30] MEDS: HYDROcodone/acetaminophen 10/325mg tab PO PRN ×2 (07:34→21:11)
[2018-06-30] MEDS: duloxetine 30mg CAPSULE.DR PO SCH (07:35)
[2018-06-30] MEDS: CefTRIAXone 2gm/D5W 50ml 50 ML IV SCH (07:36)
[2018-06-30] MEDS: digoxin 250mcg/ml 2ml ampule IV SCH (07:45)
[2018-06-30] MEDS: ketoconazole 2% cream 15gm TP SCH ×2 (08:00→20:00)
[2018-06-30] MEDS ORDERED: fluconazole-Diflucan 200mg/NS 100 ML IV ONE (09:20)
[2018-06-30] MEDS: morphine ER 30mg tablet PO SCH ×2 (09:54→16:10)
[2018-06-30 11:00] VITALS: BP 124/77
[2018-06-30] MEDS: normal saline 1000ml 1,000 ML IV SCH (11:34)
[2018-06-30] MEDS ORDERED: VANCOMYCIN LEVEL IV NR (12:30)
[2018-06-30] MEDS: fluconazole 100mg tablet PO SCH (14:23)
[2018-06-30 15:00] VITALS: BP 143/79
[2018-06-30 19:00] VITALS: BP 136/77
[2018-06-30] MEDS: insulin glargine (Lantus) pen - multi-dose SQ SCH (21:00)
[2018-06-30] MEDS: traZODone 50mg tablet PO PRN (21:11)
[2018-06-30 23:00] VITALS: BP 134/77
[2018-07-01] VITALS (12 sets, daily range): BP systolic 103–162; BP diastolic 49–84
[2018-07-01] MEDS: morphine ER 30mg tablet PO SCH ×3 (00:28→15:11)
[2018-07-01] MEDS: normal saline 1000ml 1,000 ML IV SCH ×2 (00:54→14:14)
--- NOTE | 2018-07-01 06:20 | NUR ---
Patient in room PCU 3028. I have received report from Oliverio RN and had the opportunity to ask questions and assume patient care. Pt awake and alert and appears to be in no distress at time of transfer.
--- NOTE | 2018-07-01 06:25 | NUR ---
Problems reprioritized. Patient report given, questions answered & plan of care reviewed with KIKA Silva.
[2018-07-01 06:39] LABS: BASOPHILS % (AUTO) 0.2 % (0-1); EOSINOPHILS # (AUTO) 0.2 X10'3 (0-0.9); EOSINOPHILS % (AUTO) 3.8 % (0-6); HEMATOCRIT 26.4 % (35.0-45.0); HEMOGLOBIN 8.4 g/dl (12.0-16.0); LYMPHOCYTES # (AUTO) 1.1 X10'3 (1.1-4.8); LYMPHOCYTES % (AUTO) 20.7 % (21-51); MEAN CORPUSCULAR HGB CONC 31.8 % (33.0-36.5); MEAN CORPUSCULAR VOLUME 81.9 FL (78-98); MEAN PLATELET VOLUME 7.1 FL (7.4-10.4); MONOCYTES # (AUTO) 0.5 X10'3 (0-0.9); MONOCYTES % (AUTO) 9.3 % (2-12); NEUTROPHILS # (AUTO) 3.7 X10'3 (1.8-7.7); PLATELET COUNT 217 X10'3 (140-440); RED BLOOD COUNT 3.23 X10'6 (4.20-5.60); RED CELL DISTRIBUTION WIDTH 16.9 % (11.5-14.5); WHITE BLOOD COUNT 5.5 X10'3 (4.5-11.0)
[2018-07-01 06:49] LABS: ALBUMIN 2.2 G/DL (3.4-5.0); ALBUMIN/GLOBULIN RATIO 0.5 (1.1-1.5); ALKALINE PHOSPHATASE 158 IU/L (46-116); ANION GAP 8 (8-16); ASPARTATE AMINO TRANSFERASE 0 U/L (10-37); BILIRUBIN,TOTAL 0.6 MG/DL (0.1-1.0); BLOOD UREA NITROGEN 19 MG/DL (7-18); BUN/CREATININE RATIO 12.9 (6.6-38.0); CHLORIDE 105 MMOL/L (99-107); CREATININE 1.47 MG/DL (0.40-0.90); GLUCOSE 107 MG/DL (70-104); POTASSIUM 4.2 MMOL/L (3.5-5.1); SODIUM 137 MMOL/L (135-145); TOTAL CARBON DIOXIDE 23.7 MMOL/L (24-32); TOTAL PROTEIN 6.8 G/DL (6.4-8.2); eGFR 37 ML/MIN
[2018-07-01 07:24] LABS: ALANINE AMINOTRANSFERASE < 6 U/L (12-78)
[2018-07-01] MEDS: aspirin 81mg tab.chew PO SCH (07:50)
[2018-07-01] MEDS: CefTRIAXone 2gm/D5W 50ml 50 ML IV SCH (07:50)
[2018-07-01] MEDS: docusate sod 100mg capsule PO SCH ×2 (07:51→20:00)
[2018-07-01] MEDS: apixaban 5mg tablet PO SCH ×2 (07:52→21:40)
[2018-07-01] MEDS: fluconazole 100mg tablet PO SCH (07:52)
[2018-07-01] MEDS: duloxetine 30mg CAPSULE.DR PO SCH (07:52)
[2018-07-01] MEDS: pantoprazole 40mg Tablet.DR PO SCH ×2 (07:53→21:39)
[2018-07-01] MEDS: ketoconazole 2% cream 15gm TP SCH ×2 (07:54→20:00)
[2018-07-01] MEDS: digoxin 250mcg/ml 2ml ampule IV SCH (07:59)
[2018-07-01] MEDS ORDERED: MIDAZolam 5mg/5ml vial ONE (10:26)
[2018-07-01] MEDS ORDERED: fentaNYL/PF 50MCG/1 ML 2ML syringe ONE (10:26)
[2018-07-01] MEDS ORDERED: LIDOcaine Viscous 15ml cup ONE (11:35)
--- NOTE | 2018-07-01 12:57 | NUR ---
Pt back from EGD procedure via wheelchair in stable condition. Vitals signs in vitals routine spreadsheet. Will continue to monitor.
--- NOTE | 2018-07-01 13:41 | NUR ---
PAGER ID: [phone] MESSAGE: Shira ANAND [id number] I was wondering if the order for NS@75ml/hr can be discontinued, pt. states it is making her go to the bathroom too much. Please Advise, thank you.
--- NOTE | 2018-07-01 18:31 | NUR ---
Problems reprioritized. Patient report given, questions answered & plan of care reviewed with Deep RN.Pt awake and appears to be in no distress at time of transfer.
--- NOTE | 2018-07-01 19:25 | NUR ---
Reassessment: Pt continues with tx for sepsis. Pt remains on heart healthy CHO controlled diet with documented PO intake 75-100% meeting nutrient needs. [facility] 06/30. Will continue to follow. Recommendations: 1) Continue with heart healthy CHO controlled diet 2) Monitor need for ONS 3) Monitor need for additional bowel care 4) Wt per rx Addendum: 07/01/18 at [address] Amended: Links added.
[2018-07-01] MEDS: insulin glargine (Lantus) pen - multi-dose SQ SCH (21:00)
[2018-07-01] MEDS: lactobacillus rhamnosus 10,000 MMU CELLS/CAPSULE PO SCH (21:39)
[2018-07-01] MEDS: traZODone 50mg tablet PO PRN (21:40)
[2018-07-01] MEDS: metoprolol tartrate 25mg tablet PO SCH (21:42)
[2018-07-02] MEDS: morphine ER 30mg tablet PO SCH ×2 (00:13→07:30)
[2018-07-02 03:00] VITALS: BP 134/64
[2018-07-02 05:03] LABS: BASOPHILS % (AUTO) 0.3 % (0-1); EOSINOPHILS # (AUTO) 0.2 X10'3 (0-0.9); EOSINOPHILS % (AUTO) 3.1 % (0-6); HEMATOCRIT 27.5 % (35.0-45.0); HEMOGLOBIN 8.9 g/dl (12.0-16.0); LYMPHOCYTES # (AUTO) 1.1 X10'3 (1.1-4.8); LYMPHOCYTES % (AUTO) 19.7 % (21-51); MEAN CORPUSCULAR HEMOGLOBIN 26.5 PG (27.0-31.0); MEAN CORPUSCULAR HGB CONC 32.3 % (33.0-36.5); MEAN CORPUSCULAR VOLUME 82.1 FL (78-98); MEAN PLATELET VOLUME 7.2 FL (7.4-10.4); MONOCYTES # (AUTO) 0.4 X10'3 (0-0.9); MONOCYTES % (AUTO) 7.8 % (2-12); NEUTROPHILS # (AUTO) 3.8 X10'3 (1.8-7.7); NEUTROPHILS % (AUTO) 69.1 % (42-75); PLATELET COUNT 257 X10'3 (140-440); RED BLOOD COUNT 3.35 X10'6 (4.20-5.60); RED CELL DISTRIBUTION WIDTH 16.4 % (11.5-14.5); WHITE BLOOD COUNT 5.5 X10'3 (4.5-11.0)
[2018-07-02 05:18] LABS: ALANINE AMINOTRANSFERASE 16 U/L (12-78); ALBUMIN 2.3 G/DL (3.4-5.0); ALBUMIN/GLOBULIN RATIO 0.5 (1.1-1.5); ALKALINE PHOSPHATASE 160 IU/L (46-116); ANION GAP 8 (8-16); ASPARTATE AMINO TRANSFERASE 12 U/L (10-37); BILIRUBIN,TOTAL 0.4 MG/DL (0.1-1.0); BLOOD UREA NITROGEN 17 MG/DL (7-18); BUN/CREATININE RATIO 13.2 (6.6-38.0); CALCIUM 8.1 MG/DL (8.5-10.1); CHLORIDE 103 MMOL/L (99-107); CREATININE 1.29 MG/DL (0.40-0.90); GLUCOSE 135 MG/DL (70-104); POTASSIUM 4.1 MMOL/L (3.5-5.1); SODIUM 136 MMOL/L (135-145); eGFR 43 ML/MIN
[2018-07-02 06:00] VITALS: BP 126/60
--- NOTE | 2018-07-02 06:49 | NUR ---
Problems reprioritized. Patient report given, questions answered & plan of care reviewed with Audrey ANAND.
[2018-07-02] MEDS: aspirin 81mg tab.chew PO SCH (07:29)
[2018-07-02] MEDS: CefTRIAXone 2gm/D5W 50ml 50 ML IV SCH (07:29)
[2018-07-02] MEDS: lactobacillus rhamnosus 10,000 MMU CELLS/CAPSULE PO SCH (07:30)
[2018-07-02] MEDS: apixaban 5mg tablet PO SCH (07:30)
[2018-07-02] MEDS: pantoprazole 40mg Tablet.DR PO SCH (07:30)
[2018-07-02] MEDS: duloxetine 30mg CAPSULE.DR PO SCH (07:30)
[2018-07-02] MEDS: docusate sod 100mg capsule PO SCH (07:30)
[2018-07-02] MEDS: ketoconazole 2% cream 15gm TP SCH (07:31)
[2018-07-02] MEDS: metoprolol tartrate 25mg tablet PO SCH (07:36)
[2018-07-02] MEDS: fluconazole 100mg tablet PO SCH (08:00)
[2018-07-02] MEDS ORDERED: KETO15CR2 TP (09:27)
[2018-07-02] MEDS ORDERED: LACT1CAP26 PO (09:27)
[2018-07-02] MEDS ORDERED: CEPH500C5 PO (09:27)
[2018-07-02] MEDS ORDERED: PANT40TA4 PO (09:27)
[2018-07-02 11:00] VITALS: BP 110/50
== END 2018-07-02 14:30 | disposition home or self-care (01) | DRG 871 ==
LOC: ER 19:35 → ED HOLD 22:17 → PCU 3S 06-26 07:56
PROVIDERS: ADMIT Family Medicine; ATTEND Hospitalist
PROC: 30233N1 Transfusion of Nonautologous Red Blood Cells into Peripheral Vein, Percutaneous Approach (ICD-10-PCS; 2018-06-26)
PROC: 0DB68ZX Excision of Stomach, Via Natural or Artificial Opening Endoscopic, Diagnostic (ICD-10-PCS; principal; 2018-07-01)
DX: A40.9 Streptococcal sepsis, unspecified (principal); I21.A1 Myocardial infarction type 2; I50.33 Acute on chronic diastolic (congestive) heart failure; J18.1 Lobar pneumonia, unspecified organism; E87.1 Hypo-osmolality and hyponatremia; I13.0 Hypertensive heart and chronic kidney disease with heart failure and stage 1 through stage 4 chronic kidney disease, or unspecified chronic kidney disease; N17.9 Acute kidney failure, unspecified; N30.00 Acute cystitis without hematuria; L03.116 Cellulitis of left lower limb; B48.8 Other specified mycoses; B96.20 Unspecified Escherichia coli [E. coli] as the cause of diseases classified elsewhere; D64.9 Anemia, unspecified; E11.22 Type 2 diabetes mellitus with diabetic chronic kidney disease; E88.09 Other disorders of plasma-protein metabolism, not elsewhere classified; I48.91 Unspecified atrial fibrillation; I87.8 Other specified disorders of veins; K29.00 Acute gastritis without bleeding; N18.9 Chronic kidney disease, unspecified; R09.02 Hypoxemia; G89.29 Other chronic pain; M54.9 Dorsalgia, unspecified; R19.5 Other fecal abnormalities; K21.9 Gastro-esophageal reflux disease without esophagitis; E11.621 Type 2 diabetes mellitus with foot ulcer; L97.529 Non-pressure chronic ulcer of other part of left foot with unspecified severity; I95.9 Hypotension, unspecified; Z88.0 Allergy status to penicillin; Z88.8 Allergy status to other drugs, medicaments and biological substances; Z79.01 Long term (current) use of anticoagulants; Z79.899 Other long term (current) drug therapy; Z79.82 Long term (current) use of aspirin; Z87.11 Personal history of peptic ulcer disease; Z82.49 Family history of ischemic heart disease and other diseases of the circulatory system; Z83.3 Family history of diabetes mellitus; Z82.3 Family history of stroke
CPT/HCPCS: 36415; 43239; 71045; 80053; 80061; 81001; 82272; 82550; 82948; 83605; 83690; 83735; 83880; 84100; 84145; 84443; 84484; 85025; 85610; 85730; 86703; 86706; 86803; 86870; 86885; 86900; 86901; 86902; 86922; 87040; 87070; 87077; 87088; 87186; 87340; 87502; 87503; 88305; 88342; 93005; 93971; 94640; 94667; 94760; 96365; 96375; 97116; 97162; 97530; 99152; 99285; A4620; C9113; G0378; J0696; J1160; J1265; J1450; J1815; J1885; J1956; J2060; J2250; J2270; J2405; J3010; J3370; J3490; J7030; P9016; P9047; Q0163

== ENCOUNTER 2019-04-22 13:01 | Inpatient (IN) | payer MEDICARE, OTHER ==
[~2019-04-22] VITALS: Ht 182.9 cm; Wt 152.1 kg
[~2019-04-22 13:01] MED LIST changes: -ASPI-611 PO; +DULO30CA52 PO; -DULO60CA64 PO; +FAMO20TA8 PO; -GLIM4TAB79 PO; -LACT1CAP26 PO; -MORP100C17 PO; -PANT-47 PO; -TRAZ-219 PO; +[UNRECOGNIZED DRUG - CODE] PO
[2019-04-22] MEDS ORDERED: normal saline 1000ML IV soln IVB ONE (14:30)
[2019-04-22 14:47] LABS: BASOPHILS # (AUTO) 0.1 X10'3 (0-0.2); BASOPHILS % (AUTO) 0.6 % (0-1); EOSINOPHILS % (AUTO) 0.4 % (0-6); HEMOGLOBIN 10.3 g/dl (12.0-16.0); LYMPHOCYTES % (AUTO) 10.6 % (21-51); MEAN CORPUSCULAR HEMOGLOBIN 26.8 PG (27.0-31.0); MEAN CORPUSCULAR HGB CONC 32.3 g/dL (33.0-36.5); MEAN CORPUSCULAR VOLUME 82.9 FL (78-98); MEAN PLATELET VOLUME 7.1 FL (7.4-10.4); MONOCYTES # (AUTO) 0.8 X10'3 (0-0.9); MONOCYTES % (AUTO) 8.3 % (2-12); NEUTROPHILS # (AUTO) 7.4 X10'3 (1.8-7.7); NEUTROPHILS % (AUTO) 80.1 % (42-75); PLATELET COUNT 343 X10'3 (140-440); RED BLOOD COUNT 3.86 X10'6 (4.20-5.60); RED CELL DISTRIBUTION WIDTH 18.5 % (11.5-14.5); WHITE BLOOD COUNT 9.3 X10'3 (4.5-11.0)
[2019-04-22 15:00] LABS: PARTIAL THROMBOPLASTIN TIME 34 SECONDS (22-32)
[2019-04-22 15:12] LABS: ALANINE AMINOTRANSFERASE 414 U/L (12-78); ALBUMIN 2.8 G/DL (3.4-5.0); ALBUMIN/GLOBULIN RATIO 0.5 (1.1-1.5); ALKALINE PHOSPHATASE 135 IU/L (46-116); ANION GAP 5 (8-16); ASPARTATE AMINO TRANSFERASE 512 U/L (10-37); BILIRUBIN,TOTAL 1.1 MG/DL (0.1-1.0); BLOOD UREA NITROGEN 27 MG/DL (7-18); BUN/CREATININE RATIO 12.1 (6.6-38.0); CALCIUM 8.9 MG/DL (8.5-10.1); CHLORIDE 102 MMOL/L (99-107); CREATININE 2.23 MG/DL (0.40-0.90); GLUCOSE 187 MG/DL (70-104); MAGNESIUM 2.3 MG/DL (1.5-2.4); SODIUM 133 MMOL/L (135-145); TOTAL CARBON DIOXIDE 25.8 MMOL/L (24-32); TROPONIN I 0.06 NG/ML (0.0-0.05); eGFR 23 ML/MIN
[2019-04-22 15:15] LABS: POTASSIUM 6.6 MMOL/L (3.5-5.1)
[2019-04-22] MEDS ORDERED: sodium bicarbonate (0.9mEq/ml) 44.6 mEq/50ml syringe IV ONE (15:20)
[2019-04-22] MEDS ORDERED: dextrose 50%-water 50ml dispensing syringe IV ONE (15:20)
[2019-04-22] MEDS ORDERED: insulin regular, human 10 units/0.1 ml syringe IV ONE (15:20)
[2019-04-22] MEDS ORDERED: furosemide 40mg/4ml inj IV ONE (15:20)
[2019-04-22] MEDS ORDERED: sodium bicarbonate (8.4%) inj. 1 MEQ/ML ML IV ONE (15:35)
[2019-04-22] MEDS ORDERED: acetaminophen 325mg tablet PO PRN (16:00)
[2019-04-22] MEDS ORDERED: morphine 2 MG/ML inj. syringe IV PRN ×2 (16:00)
[2019-04-22] MEDS ORDERED: mag hydrox/Alum hydrox/simeth 30ml oral suspension PO PRN (16:00)
[2019-04-22] MEDS ORDERED: ondansetron/PF 4mg/2ml inj IV PRN (16:00)
[2019-04-22] MEDS ORDERED: magnesium hydroxide 30ml (MOM) UD suspension PO PRN (16:00)
[2019-04-22] MEDS ORDERED: vancomycin/NS 1 GM ADD-VANTAGE 250 ML IV ONE (16:05)
[2019-04-22 16:19] LABS: LIPASE 158 U/L (73-393)
[2019-04-22 16:21] LABS: D-DIMER 3.79 MG/L FEU (0-0.50)
[2019-04-22 16:30] LABS: HEMOGLOBIN A1C 8.3 % (4.5-6.2)
[2019-04-22] MEDS ORDERED: TRAZ-219 PO (16:56)
[2019-04-22] MEDS ORDERED: METO100T14 PO (16:56)
[2019-04-22] MEDS ORDERED: MSC100T PO (16:56)
--- NOTE | 2019-04-22 17:30 | NUR ---
RECEIVED REPORT FROM ER. ALL QUESTIONS ANSWERED. ROOM READY. AWAITING PATIENT ARRIVAL.
[2019-04-22] MEDS: furosemide inj 100 MG in normal saline 100ml IV soln 90 ML IV SCH (17:55)
[2019-04-22 18:00] VITALS: BP 99/43
--- NOTE | 2019-04-22 18:20 | NUR ---
PATIENT ARRIVED TO UNIT VIA GURNEY FROM ED. AMBULATED TO BEDROOM. PATIENT ORIENTED TO ROOM AND UNIT. CALL LIGHT WITHIN REACH, BLL. LASIX GTT INFUSING ORDERED.
[2019-04-22] MEDS ORDERED: dextrose 50%-water 50ml dispensing syringe IV PRN ×2 (18:40)
[2019-04-22] MEDS ORDERED: dextrose ORAL solution 15 GM/59 ML bottle PO PRN ×2 (18:40)
[2019-04-22] MEDS ORDERED: MESSAGE TO PHARMACY PO ONE (18:40)
[2019-04-22] MEDS ORDERED: glucagon, human recombinant 1mg kit SUBCUT PRN (18:40)
--- NOTE | 2019-04-22 18:40 | NUR ---
CALLED DR. COOPER REGARDING PATIENT'S BP OF 82/55 WHILE ON LASIX GTT. ORDERS RECEIVED TO PUT PATIENT ON DOBUTAMINE GTT AT 5MCG, CONTINUE LASIX GTT. PATIENT ALSO HAS A HX OF DIABETES, ORDERS RECEIVED TO PLACE PATIENT ON THE HYPER/HYPOGLYCEMIC PROTOCOL.
[2019-04-22] MEDS: DOBUTamine-DoBUTrex 500mg/D5W 250 ML IV SCH (19:57)
[2019-04-22] MEDS: traZODone 50mg tablet PO SCH (20:09)
[2019-04-22] MEDS: apixaban 5mg tablet PO SCH (20:09)
[2019-04-22] MEDS: levoFLOXACIN-Levaquin 250mg/D5 50 ML IV SCH (20:26)
[2019-04-22] MEDS: insulin glargine (Lantus) pen - multi-dose SQ SCH (21:00)
[2019-04-22] MEDS: morphine ER 100mg tablet PO SCH (21:45)
[2019-04-22 21:52] LABS: ALBUMIN 2.7 G/DL (3.4-5.0); ANION GAP 7 (8-16); BLOOD UREA NITROGEN 27 MG/DL (7-18); BUN/CREATININE RATIO 12.3 (6.6-38.0); CALCIUM 7.3 MG/DL (8.5-10.1); CHLORIDE 103 MMOL/L (99-107); GLUCOSE 87 MG/DL (70-104); MAGNESIUM 2.1 MG/DL (1.5-2.4); PHOSPHORUS 4.4 MG/DL (2.3-4.5); POTASSIUM 4.8 MMOL/L (3.5-5.1); SODIUM 138 MMOL/L (135-145); TOTAL CARBON DIOXIDE 28.3 MMOL/L (24-32); eGFR 23 ML/MIN
[2019-04-22 22:00] VITALS: BP 112/64
[2019-04-23] VITALS (7 sets, daily range): BP systolic 93–130; BP diastolic 45–58
[2019-04-23] MEDS: furosemide inj 100 MG in normal saline 100ml IV soln 90 ML IV SCH ×3 (01:47→21:24)
[2019-04-23 04:47] LABS: CLARITY,URINE CLEAR (Clear); COLOR,URINE YELLOW (Yellow); GLUCOSE, URINE NEGATIVE (Neg); KETONES,URINE NEGATIVE (Neg); LEUKOCYTE ESTERASE ,URINE NEGATIVE (Neg); NITRITES, URINE NEGATIVE (Neg); OCCULT BLOOD,URINE TRACE-INTACT (Neg); PROTEIN,URINE NEGATIVE (Neg); UROBILINOGEN,URINE 0.2 E.U/dL (0.2-1.0)
[2019-04-23 04:48] LABS: UA COLLECTION TYPE FOLEY CATH
[2019-04-23 04:54] LABS: BACTERIA,URINE NONE SEEN /HPF (Neg); MUCUS STRANDS NONE SEEN /LPF (Neg); RBC,URINE 0-2 /HPF (0-2); SQUAMOUS EPITHELIAL CELL,UR NONE SEEN /LPF (FEW); WBC,URINE NONE SEEN /HPF (0-4)
--- NOTE | 2019-04-23 05:14 | NUR ---
Called Dr. Baez and informed him regarding the patient having 29 beats run of V tach at 0410. He acknowledged it but did not order anything at this time.
[2019-04-23] MEDS: DOBUTamine-DoBUTrex 500mg/D5W 250 ML IV SCH ×2 (05:54→17:20)
--- NOTE | 2019-04-23 06:10 | NUR ---
Patient in room MED 313. I have received report from Harley RN & Arely RN and had the opportunity to ask questions and assume patient care.
--- NOTE | 2019-04-23 06:24 | NUR ---
gave report to Les. Answered all the questions.
--- NOTE | 2019-04-23 06:24 | NUR ---
I have reviewed and agree with all interventions, assessments performed and documented by Usha
[2019-04-23 06:47] LABS: ALBUMIN 2.5 G/DL (3.4-5.0); ALBUMIN/GLOBULIN RATIO 0.5 (1.1-1.5); ALKALINE PHOSPHATASE 111 IU/L (46-116); ANION GAP 5 (8-16); BILIRUBIN,TOTAL 0.8 MG/DL (0.1-1.0); BLOOD UREA NITROGEN 27 MG/DL (7-18); BUN/CREATININE RATIO 12.7 (6.6-38.0); CALCIUM 7.4 MG/DL (8.5-10.1); CHLORIDE 102 MMOL/L (99-107); CHOL/HDL RATIO 4.5 (0.00-4.99); CHOLESTEROL 108 MG/DL (0-200); CREATININE 2.12 MG/DL (0.40-0.90); HDL CHOLESTEROL 24 MG/DL (35-60); LACTATE DEHYDROGENASE 1153 U/L (81-234); LDL CHOLESTEROL 70 MG/DL (50-100); MAGNESIUM 1.7 MG/DL (1.5-2.4); PHOSPHORUS 4.5 MG/DL (2.3-4.5); POTASSIUM 3.9 MMOL/L (3.5-5.1); SODIUM 136 MMOL/L (135-145); TOTAL CARBON DIOXIDE 29.2 MMOL/L (24-32); TOTAL PROTEIN 7.1 G/DL (6.4-8.2); TRIGLYCERIDES 107 MG/DL (20-135); TROPONIN I 0.05 NG/ML (0.0-0.05); eGFR 24 ML/MIN
[2019-04-23 07:05] LABS: ALANINE AMINOTRANSFERASE 1423 U/L (12-78); ASPARTATE AMINO TRANSFERASE 1553 U/L (10-37)
[2019-04-23 07:08] LABS: GLUCOSE 47 MG/DL (70-104)
[2019-04-23] MEDS: apixaban 5mg tablet PO SCH ×2 (07:34→21:20)
[2019-04-23 07:57] LABS: BASOPHILS % (AUTO) 0.4 % (0-1); EOSINOPHILS # (AUTO) 0.1 X10'3 (0-0.9); HEMATOCRIT 27.7 % (35.0-45.0); LYMPHOCYTES # (AUTO) 0.6 X10'3 (1.1-4.8); MEAN CORPUSCULAR HEMOGLOBIN 26.8 PG (27.0-31.0); MEAN CORPUSCULAR HGB CONC 32.5 g/dL (33.0-36.5); MEAN CORPUSCULAR VOLUME 82.6 FL (78-98); MEAN PLATELET VOLUME 7.3 FL (7.4-10.4); MONOCYTES # (AUTO) 0.4 X10'3 (0-0.9); NEUTROPHILS % (AUTO) 84.6 % (42-75); PLATELET COUNT 244 X10'3 (140-440); RED BLOOD COUNT 3.36 X10'6 (4.20-5.60); RED CELL DISTRIBUTION WIDTH 18.4 % (11.5-14.5); WHITE BLOOD COUNT 7.1 X10'3 (4.5-11.0)
[2019-04-23] MEDS ORDERED: vancomycin/NS 1 GM ADD-VANTAGE 250 ML IV SCH (08:00)
[2019-04-23] MEDS ORDERED: duloxetine 30mg CAPSULE.DR PO SCH (08:00)
--- NOTE | 2019-04-23 08:52 | NUR ---
313: FLOR - CAN YOU PLACE MIDLINE PLEASE? THANK YOU Addendum: 04/23/19 at 1452 by Lashaun Stanley RN ALTHEA WILDE
[2019-04-23 09:41] LABS: ALBUMIN 2.4 G/DL (3.4-5.0); MAGNESIUM 1.7 MG/DL (1.5-2.4); TOTAL CARBON DIOXIDE 30.8 MMOL/L (24-32)
[2019-04-23 09:56] LABS: ANION GAP 3 (8-16); BLOOD UREA NITROGEN 28 MG/DL (7-18); BUN/CREATININE RATIO 13.1 (6.6-38.0); CHLORIDE 102 MMOL/L (99-107); CREATININE 2.13 MG/DL (0.40-0.90); GLUCOSE 177 MG/DL (70-104); PHOSPHORUS 4.2 MG/DL (2.3-4.5); POTASSIUM 4.1 MMOL/L (3.5-5.1); SODIUM 136 MMOL/L (135-145); eGFR 24 ML/MIN
[2019-04-23] MEDS: levoFLOXACIN-Levaquin 250mg/D5 50 ML IV SCH (10:52)
[2019-04-23] MEDS: morphine ER 100mg tablet PO SCH ×3 (10:52→21:21)
[2019-04-23] MEDS: diazepam 5mg tablet PO PRN (14:58)
[2019-04-23] MEDS: HYDROcodone/acetaminophen 5mg/325mg tablet PO PRN (16:12)
--- NOTE | 2019-04-23 17:41 | NUR ---
DM consult: Pt with A1c 8.3. Patient's just admit last week and both were seen by RD provided with extensive diabetes education. Pt seen at bedside again this visit provided with verbal DM and protein educations. Written material not provided as pt with multiple recent visits and already provided with written educations. Per MD notes pt with CKD IV with bad dietary regulations, potential for hyperkalemia. RD advised to avoid Pepsi products d/t elevated K, pt agrees to try to alter beverage preferences. Pt reports not being well educated on nutrition but is trying to learn and make appropriate changes. Encouraged pt to call RD team even after discharge if she has any questions. Will continue to follow. Addendum: 04/23/19 at [address] Amended: Links added.
--- NOTE | 2019-04-23 18:45 | NUR ---
Problems reprioritized. Patient report given, questions answered & plan of care reviewed with KIKA Russell.
[2019-04-23 19:25] LABS: ALBUMIN 2.6 G/DL (3.4-5.0); ANION GAP 4 (8-16); BLOOD UREA NITROGEN 26 MG/DL (7-18); BUN/CREATININE RATIO 11.7 (6.6-38.0); CALCIUM 7.3 MG/DL (8.5-10.1); CHLORIDE 99 MMOL/L (99-107); CREATININE 2.23 MG/DL (0.40-0.90); GLUCOSE 167 MG/DL (70-104); MAGNESIUM 1.6 MG/DL (1.5-2.4); PHOSPHORUS 3.5 MG/DL (2.3-4.5); SODIUM 135 MMOL/L (135-145); eGFR 23 ML/MIN
[2019-04-23 19:31] LABS: POTASSIUM 4.2 MMOL/L (3.5-5.1)
[2019-04-23] MEDS: insulin Lispro (HumaLOG) vial - multi-dose SQ SCH (19:34)
[2019-04-23] MEDS: lactobacillus rhamnosus 10,000 MMU CELLS/CAPSULE PO SCH (21:20)
[2019-04-23] MEDS: traZODone 50mg tablet PO SCH (21:21)
[2019-04-23] MEDS: insulin glargine (Lantus) pen - multi-dose SQ SCH (21:34)
[2019-04-24] VITALS (11 sets, daily range): BP systolic 88–129; BP diastolic 45–74
[2019-04-24] MEDS: HYDROcodone/acetaminophen 5mg/325mg tablet PO PRN (00:07)
[2019-04-24 01:17] LABS: ALBUMIN 2.5 G/DL (3.4-5.0); ANION GAP 4 (8-16); BLOOD UREA NITROGEN 27 MG/DL (7-18); BUN/CREATININE RATIO 12.2 (6.6-38.0); CALCIUM 7.5 MG/DL (8.5-10.1); CHLORIDE 98 MMOL/L (99-107); CREATININE 2.22 MG/DL (0.40-0.90); GLUCOSE 149 MG/DL (70-104); MAGNESIUM 1.4 MG/DL (1.5-2.4); PHOSPHORUS 3.5 MG/DL (2.3-4.5); POTASSIUM 3.7 MMOL/L (3.5-5.1); SODIUM 136 MMOL/L (135-145); TOTAL CARBON DIOXIDE 33.9 MMOL/L (24-32); eGFR 23 ML/MIN
[2019-04-24 04:21] LABS: BASOPHILS % (AUTO) 0.4 % (0-1); EOSINOPHILS # (AUTO) 0.1 X10'3 (0-0.9); EOSINOPHILS % (AUTO) 2.7 % (0-6); HEMOGLOBIN 8.9 g/dl (12.0-16.0); LYMPHOCYTES # (AUTO) 0.8 X10'3 (1.1-4.8); MEAN CORPUSCULAR HEMOGLOBIN 27.1 PG (27.0-31.0); MEAN CORPUSCULAR HGB CONC 32.8 g/dL (33.0-36.5); MEAN CORPUSCULAR VOLUME 82.6 FL (78-98); MEAN PLATELET VOLUME 7.2 FL (7.4-10.4); MONOCYTES # (AUTO) 0.4 X10'3 (0-0.9); MONOCYTES % (AUTO) 7.1 % (2-12); NEUTROPHILS # (AUTO) 3.8 X10'3 (1.8-7.7); NEUTROPHILS % (AUTO) 73.8 % (42-75); PLATELET COUNT 226 X10'3 (140-440); RED BLOOD COUNT 3.27 X10'6 (4.20-5.60); RED CELL DISTRIBUTION WIDTH 18.3 % (11.5-14.5); WHITE BLOOD COUNT 5.2 X10'3 (4.5-11.0)
[2019-04-24 04:39] LABS: ALANINE AMINOTRANSFERASE 1141 U/L (12-78); ALBUMIN 2.5 G/DL (3.4-5.0); ALBUMIN/GLOBULIN RATIO 0.5 (1.1-1.5); ALKALINE PHOSPHATASE 116 IU/L (46-116); ANION GAP 6 (8-16); ASPARTATE AMINO TRANSFERASE 715 U/L (10-37); BILIRUBIN,TOTAL 0.6 MG/DL (0.1-1.0); BLOOD UREA NITROGEN 27 MG/DL (7-18); BUN/CREATININE RATIO 12.5 (6.6-38.0); CALCIUM 7.4 MG/DL (8.5-10.1); CHLORIDE 98 MMOL/L (99-107); CREATININE 2.16 MG/DL (0.40-0.90); GLUCOSE 156 MG/DL (70-104); POTASSIUM 3.7 MMOL/L (3.5-5.1); SODIUM 136 MMOL/L (135-145); TOTAL CARBON DIOXIDE 32.5 MMOL/L (24-32); TOTAL PROTEIN 7.5 G/DL (6.4-8.2); eGFR 23 ML/MIN
[2019-04-24] MEDS: DOBUTamine-DoBUTrex 500mg/D5W 250 ML IV SCH ×3 (05:11→22:40)
--- NOTE | 2019-04-24 06:30 | NUR ---
Problems reprioritized. Patient report given, questions answered & plan of care reviewed with KIKA Pate.
--- NOTE | 2019-04-24 06:35 | NUR ---
Patient in room MED 313. I have received report from KIKA Charles and had the opportunity to ask questions and assume patient care.
[2019-04-24 07:09] LABS: ALBUMIN 2.5 G/DL (3.4-5.0); ANION GAP 6 (8-16); BLOOD UREA NITROGEN 26 MG/DL (7-18); BUN/CREATININE RATIO 12.2 (6.6-38.0); CALCIUM 7.5 MG/DL (8.5-10.1); CHLORIDE 98 MMOL/L (99-107); CREATININE 2.13 MG/DL (0.40-0.90); GLUCOSE 165 MG/DL (70-104); MAGNESIUM 1.4 MG/DL (1.5-2.4); PHOSPHORUS 3.5 MG/DL (2.3-4.5); POTASSIUM 3.6 MMOL/L (3.5-5.1); SODIUM 136 MMOL/L (135-145); TOTAL CARBON DIOXIDE 32.4 MMOL/L (24-32); eGFR 24 ML/MIN
[2019-04-24 07:09] LABS: HBSAG SCREEN Negative (Negative); HEPATITIS C ANTIBODY <0.1 s/co ratio (0.0-0.9); RPR Non Reactive (Non Reactive)
[2019-04-24] MEDS: duloxetine 30mg CAPSULE.DR PO SCH (08:38)
[2019-04-24] MEDS: lactobacillus rhamnosus 10,000 MMU CELLS/CAPSULE PO SCH ×2 (08:38→20:34)
[2019-04-24] MEDS: apixaban 5mg tablet PO SCH ×2 (08:39→20:34)
[2019-04-24] MEDS: morphine ER 100mg tablet PO SCH ×3 (08:39→21:10)
[2019-04-24 08:41] LABS: ANTISTREPTOLYSIN O AB 406.5 IU/mL (0.0-200.0); COMPLEMENT C3, SERUM 74 mg/dL (82-167); COMPLEMENT C4, SERUM 15 mg/dL (14-44)
[2019-04-24] MEDS: furosemide inj 100 MG in normal saline 100ml IV soln 90 ML IV SCH (08:42)
--- NOTE | 2019-04-24 09:00 | NUR ---
double charted vancomycin iv ,only one dose given
[2019-04-24] MEDS: insulin Lispro (HumaLOG) vial - multi-dose SQ SCH ×3 (09:53→19:20)
--- NOTE | 2019-04-24 11:15 | NUR ---
CALLED MD JEFF REGARDING ONGOING AFIB RVR, RATE SUSTAINING IN 130'S TO 140'S, ELEVATING HIGH 170 SYSTOLICALLY; DIGOXIN DOSE X1 ON DAY SHIFT GIVEN FOR RATE CONTROL, NOTHING ELSE ORDERED. ORDERED DILTIAZEM 10MG BOLUS AND DRIP AT 5MG/HR Addendum: 04/25/19 at 0441 by Radha Guillaume RN ALSO CHANGED LASIX FROM IV INFUSION TO 40 MG IV PUSH Q8HRS
--- NOTE | 2019-04-24 11:24 | NUR ---
DR. COOPER @ BEDSIDE. NEW ORDERS RECEIVED: K/MAG REPLACEMENT ORDERS, REPLACE K TO 4.0, MG TO 2.0, CALL MD IF SBP 130-140 mmHg
[2019-04-24] MEDS ORDERED: potassium Cl 20 mEq SR tablet PO PRN (11:25)
[2019-04-24] MEDS ORDERED: magnesium 4gm in 100ml NS 100 ML IV PRN (11:25)
[2019-04-24] MEDS ORDERED: potassium CL 10mEq/100ml bag 100 ML IV PRN (11:25)
--- NOTE | 2019-04-24 11:30 | NUR ---
Called Sasha to inform him of Vanco trough level 26.4; discussed lack of PIV right hand , one Midline port working for Dobutamine infusion only, neither port drawing blood. Lasix drip of 10 changed to 40 IV push q8h, dc'd Lasix drip. Discussed uncontrolled rate of AFIB ; MD chose to not administer anything due to resting rate in 100-120's. Dobutamine contined at given rate of 5 mcg/kg/minute. one working midline IV access, continue q6 lab draws via butterfly stick.
[2019-04-24] MEDS: levoFLOXACIN 250mg tablet PO SCH (11:41)
[2019-04-24] MEDS: magnesium 2GM in 50ml NS 50 ML IV PRN (11:42)
--- NOTE | 2019-04-24 14:46 | NUR ---
Nutrition consult re: "renal diet to keep potassium limited". Pt already seen by RD yesterday and provided with verbal education. RD followed up with pt today and provided written nutrition therapy education on diabetes and CKD with a list of potassium content in food. Pt with no questions at this time and was already provided with RD contact information yesterday. Pt requests double protein for satiety, d/w dietary to send BIDLD. Will continue to follow. DM consult: Pt with A1c 8.3. Patient's just admit last week and both were seen by RD provided with extensive diabetes education. Pt seen at bedside again this visit provided with verbal DM and protein educations. Written material not provided as pt with multiple recent visits and already provided with written educations. Per MD notes pt with CKD IV with bad dietary regulations, potential for hyperkalemia. RD advised to avoid Pepsi products d/t elevated K, pt agrees to try to alter beverage preferences. Pt reports not being well educated on nutrition but is trying to learn and make appropriate changes. Encouraged pt to call RD team even after discharge if she has any questions. Will continue to follow. Addendum: 04/24/19 at [address] Amended: Links added.
[2019-04-24] MEDS: potassium Cl 20 mEq SR tablet PO PRN (15:44)
[2019-04-24 16:05] LABS: ANION GAP 3 (8-16); BLOOD UREA NITROGEN 22 MG/DL (7-18); BUN/CREATININE RATIO 13.6 (6.6-38.0); CALCIUM 6.4 MG/DL (8.5-10.1); CHLORIDE 102 MMOL/L (99-107); CREATININE 1.62 MG/DL (0.40-0.90); GLUCOSE 162 MG/DL (70-104); SODIUM 137 MMOL/L (135-145); eGFR 33 ML/MIN
[2019-04-24 16:06] LABS: ALBUMIN 2.1 G/DL (3.4-5.0); MAGNESIUM 1.4 MG/DL (1.5-2.4)
[2019-04-24] MEDS ORDERED: digoxin 250mcg/ml 2ml ampule IV ONE (16:15)
[2019-04-24] MEDS: magnesium Cl slow-release 64mg tablet PO PRN (17:50)
--- NOTE | 2019-04-24 18:00 | NUR ---
Patient in room MED 313. I have received report from JAY ANAND and had the opportunity to ask questions and assume patient care.
[2019-04-24] MEDS ORDERED: VANCOMYCIN LEVEL IV ONE (18:30)
[2019-04-24 19:12] LABS: ANTINUCLEAR ANTIBODIES Negative (Negative)
[2019-04-24] MEDS: traZODone 50mg tablet PO SCH (21:09)
[2019-04-24 22:37] LABS: ALBUMIN 2.7 G/DL (3.4-5.0); ANION GAP 3 (8-16); BLOOD UREA NITROGEN 26 MG/DL (7-18); BUN/CREATININE RATIO 12.7 (6.6-38.0); CALCIUM 7.7 MG/DL (8.5-10.1); CHLORIDE 96 MMOL/L (99-107); CREATININE 2.05 MG/DL (0.40-0.90); GLUCOSE 165 MG/DL (70-104); MAGNESIUM 1.7 MG/DL (1.5-2.4); PHOSPHORUS 3.3 MG/DL (2.3-4.5); POTASSIUM 4.5 MMOL/L (3.5-5.1); SODIUM 135 MMOL/L (135-145); TOTAL CARBON DIOXIDE 36.2 MMOL/L (24-32); eGFR 25 ML/MIN
[2019-04-24 22:40] LABS: VANCOMYCIN,TROUGH 26.4 UG/ML (6.0-14.0)
[2019-04-24] MEDS: insulin glargine (Lantus) pen - multi-dose SQ SCH (22:53)
[2019-04-25] VITALS (8 sets, daily range): BP systolic 103–139; BP diastolic 48–103
[2019-04-25] MEDS: oxyCODONE IR 5mg (immed. release) tablet PO PRN (01:06)
[2019-04-25] MEDS ORDERED: diltiazem-NS 100mg/100ml 100 ML IV SCH (01:10)
[2019-04-25] MEDS ORDERED: diltiazem 5mg/ml 5ml inj. IV ONE (01:10)
[2019-04-25] MEDS: furosemide 40mg/4ml inj IV SCH ×3 (01:55→15:42)
[2019-04-25] MEDS: HYDROcodone/acetaminophen 5mg/325mg tablet PO PRN (04:40)
[2019-04-25] MEDS: DOBUTamine-DoBUTrex 500mg/D5W 250 ML IV SCH ×2 (04:42→16:34)
[2019-04-25 05:11] LABS: BASOPHILS % (AUTO) 0.6 % (0-1); EOSINOPHILS # (AUTO) 0.2 X10'3 (0-0.9); EOSINOPHILS % (AUTO) 3.4 % (0-6); HEMATOCRIT 28.9 % (35.0-45.0); HEMOGLOBIN 9.5 g/dl (12.0-16.0); LYMPHOCYTES # (AUTO) 0.9 X10'3 (1.1-4.8); MEAN CORPUSCULAR HEMOGLOBIN 27.1 PG (27.0-31.0); MEAN CORPUSCULAR HGB CONC 32.7 g/dL (33.0-36.5); MEAN CORPUSCULAR VOLUME 82.8 FL (78-98); MEAN PLATELET VOLUME 7.2 FL (7.4-10.4); MONOCYTES # (AUTO) 0.4 X10'3 (0-0.9); MONOCYTES % (AUTO) 7.2 % (2-12); NEUTROPHILS % (AUTO) 72.8 % (42-75); PLATELET COUNT 244 X10'3 (140-440); RED BLOOD COUNT 3.49 X10'6 (4.20-5.60); RED CELL DISTRIBUTION WIDTH 18.6 % (11.5-14.5); WHITE BLOOD COUNT 5.5 X10'3 (4.5-11.0)
[2019-04-25 05:22] LABS: ALANINE AMINOTRANSFERASE 839 U/L (12-78); ALBUMIN 2.7 G/DL (3.4-5.0); ALBUMIN/GLOBULIN RATIO 0.5 (1.1-1.5); ALKALINE PHOSPHATASE 117 IU/L (46-116); ANION GAP 7 (8-16); ASPARTATE AMINO TRANSFERASE 347 U/L (10-37); BILIRUBIN,TOTAL 0.6 MG/DL (0.1-1.0); BLOOD UREA NITROGEN 26 MG/DL (7-18); BUN/CREATININE RATIO 13.3 (6.6-38.0); CALCIUM 7.8 MG/DL (8.5-10.1); CHLORIDE 96 MMOL/L (99-107); CREATININE 1.96 MG/DL (0.40-0.90); GLUCOSE 168 MG/DL (70-104); PHOSPHORUS 3.9 MG/DL (2.3-4.5); SODIUM 138 MMOL/L (135-145); TOTAL CARBON DIOXIDE 35.5 MMOL/L (24-32); TOTAL PROTEIN 7.8 G/DL (6.4-8.2); eGFR 26 ML/MIN
--- NOTE | 2019-04-25 06:33 | NUR ---
Patient in room MED 313. I have received report from KIKA BLACKWELL and had the opportunity to ask questions and assume patient care.
[2019-04-25] MEDS: apixaban 5mg tablet PO SCH ×2 (07:59→20:46)
[2019-04-25] MEDS: lactobacillus rhamnosus 10,000 MMU CELLS/CAPSULE PO SCH ×2 (07:59→20:46)
[2019-04-25] MEDS: duloxetine 30mg CAPSULE.DR PO SCH (07:59)
[2019-04-25] MEDS: morphine ER 100mg tablet PO SCH ×3 (08:00→20:46)
[2019-04-25] MEDS: insulin Lispro (HumaLOG) vial - multi-dose SQ SCH ×4 (09:07→22:42)
[2019-04-25 10:57] LABS: ALBUMIN 2.7 G/DL (3.4-5.0); ANION GAP 3 (8-16); BLOOD UREA NITROGEN 25 MG/DL (7-18); CALCIUM 8.1 MG/DL (8.5-10.1); CHLORIDE 95 MMOL/L (99-107); CREATININE 1.92 MG/DL (0.40-0.90); GLUCOSE 250 MG/DL (70-104); MAGNESIUM 1.6 MG/DL (1.5-2.4); PHOSPHORUS 3.8 MG/DL (2.3-4.5); SODIUM 133 MMOL/L (135-145); TOTAL CARBON DIOXIDE 34.8 MMOL/L (24-32); eGFR 27 ML/MIN
[2019-04-25] MEDS: levoFLOXACIN 250mg tablet PO SCH (11:29)
[2019-04-25] MEDS: diltiazem SR 60mg capsule (twice daily) PO SCH ×2 (11:42→20:48)
[2019-04-25] MEDS: diazepam 5mg tablet PO PRN (15:42)
[2019-04-25] MEDS: magnesium 2GM in 50ml NS 50 ML IV PRN (15:42)
--- NOTE | 2019-04-25 18:00 | NUR ---
Patient in room MED 313. I have received report from JAY ANAND and had the opportunity to ask questions and assume patient care.
[2019-04-25] MEDS: traZODone 50mg tablet PO SCH (20:46)
[2019-04-25] MEDS: insulin glargine (Lantus) pen - multi-dose SQ SCH (21:00)
[2019-04-26] MEDS: furosemide 40mg/4ml inj IV SCH ×3 (00:41→15:05)
[2019-04-26] MEDS: oxyCODONE IR 5mg (immed. release) tablet PO PRN (00:42)
[2019-04-26 02:00] VITALS: BP 122/63
[2019-04-26 06:00] VITALS: BP 112/59
--- NOTE | 2019-04-26 06:00 | NUR ---
Patient in room MED 313. I have received report from KIKA Garcia and had the opportunity to ask questions and assume patient care.
[2019-04-26 06:16] LABS: BASOPHILS % (AUTO) 0.5 % (0-1); EOSINOPHILS # (AUTO) 0.3 X10'3 (0-0.9); EOSINOPHILS % (AUTO) 4.6 % (0-6); HEMATOCRIT 30.5 % (35.0-45.0); LYMPHOCYTES # (AUTO) 1.1 X10'3 (1.1-4.8); LYMPHOCYTES % (AUTO) 17.6 % (21-51); MEAN CORPUSCULAR HEMOGLOBIN 27.1 PG (27.0-31.0); MEAN CORPUSCULAR HGB CONC 32.9 g/dL (33.0-36.5); MEAN CORPUSCULAR VOLUME 82.4 FL (78-98); MONOCYTES # (AUTO) 0.5 X10'3 (0-0.9); MONOCYTES % (AUTO) 7.6 % (2-12); NEUTROPHILS # (AUTO) 4.4 X10'3 (1.8-7.7); NEUTROPHILS % (AUTO) 69.7 % (42-75); PLATELET COUNT 277 X10'3 (140-440); RED CELL DISTRIBUTION WIDTH 18.1 % (11.5-14.5); WHITE BLOOD COUNT 6.3 X10'3 (4.5-11.0)
[2019-04-26 06:31] LABS: ALANINE AMINOTRANSFERASE 616 U/L (12-78); ALBUMIN 2.7 G/DL (3.4-5.0); ALBUMIN/GLOBULIN RATIO 0.5 (1.1-1.5); ALKALINE PHOSPHATASE 111 IU/L (46-116); ANION GAP 3 (8-16); ASPARTATE AMINO TRANSFERASE 185 U/L (10-37); BILIRUBIN,TOTAL 0.6 MG/DL (0.1-1.0); BLOOD UREA NITROGEN 29 MG/DL (7-18); BUN/CREATININE RATIO 14.6 (6.6-38.0); CALCIUM 8.2 MG/DL (8.5-10.1); CHLORIDE 91 MMOL/L (99-107); CREATININE 1.99 MG/DL (0.40-0.90); GLUCOSE 142 MG/DL (70-104); MAGNESIUM 1.7 MG/DL (1.5-2.4); POTASSIUM 3.5 MMOL/L (3.5-5.1); SODIUM 130 MMOL/L (135-145); TOTAL CARBON DIOXIDE 35.7 MMOL/L (24-32); eGFR 26 ML/MIN
[2019-04-26] MEDS: morphine ER 100mg tablet PO SCH ×2 (07:23→15:05)
[2019-04-26] MEDS: apixaban 5mg tablet PO SCH (07:24)
[2019-04-26] MEDS: lactobacillus rhamnosus 10,000 MMU CELLS/CAPSULE PO SCH (07:24)
[2019-04-26] MEDS: potassium Cl 20 mEq SR tablet PO PRN (07:24)
[2019-04-26] MEDS: diltiazem SR 60mg capsule (twice daily) PO SCH (07:25)
[2019-04-26] MEDS: magnesium Cl slow-release 64mg tablet PO PRN (07:25)
[2019-04-26] MEDS: duloxetine 30mg CAPSULE.DR PO SCH (07:46)
[2019-04-26] MEDS: diazepam 5mg tablet PO PRN (09:15)
[2019-04-26] MEDS: insulin Lispro (HumaLOG) vial - multi-dose SQ SCH ×2 (09:19→13:21)
[2019-04-26 09:55] LABS: A/G RATIO 0.7 (0.7-1.7); ALBUMIN 2.7 g/dL (2.9-4.4); BETA GLOBULIN 1.2 g/dL (0.7-1.3); GAMMA GLOBULIN 1.7 g/dL (0.4-1.8); GLOBULIN, TOTAL 3.9 g/dL (2.2-3.9); M-SPIKE Not Observed g/dL (Not Observed); PROTEIN, TOTAL, SERUM 6.6 g/dL (6.0-8.5)
[2019-04-26 11:00] VITALS: BP 104/71
[2019-04-26] MEDS: levoFLOXACIN 250mg tablet PO SCH (11:36)
--- NOTE | 2019-04-26 13:25 | NUR ---
Patient to SATYA.
[2019-04-26 15:00] VITALS: BP 92/57
[2019-04-26] MEDS ORDERED: LACT1CAP26 PO (15:21)
[2019-04-26] MEDS ORDERED: SITA100T11 PO (15:21)
[2019-04-26] MEDS ORDERED: CARSR60C PO (15:21)
[2019-04-26] MEDS ORDERED: LEVO250T58 PO (15:21)
[2019-04-26] MEDS ORDERED: GLIM1TAB3 PO (15:21)
[2019-04-26] MEDS ORDERED: METO-395 PO (15:30)
[2019-04-26] MEDS ORDERED: POTA10TA36 PO (15:50)
[2019-04-26] MEDS ORDERED: FURO-150 PO (15:50)
--- NOTE | 2019-04-26 16:52 | NUR ---
Orientee documentation and med administration: I have reviewed and agree with all interventions, assessments performed and documented by Ashley ANAND.
--- NOTE | 2019-04-26 17:41 | NUR ---
Patient stable for discharge per MD orders. All discharge prescriptions and instructions reviewed and prescriptions called in to pharmacy. Diabetes survival skills reviewed and sent with patient. Follow up appt with PCP made for patient per CHF and diabetes core measures. All patient questions answered. Midline discontinued; cannula intact, pressure held. Clean, dry dressing in place. Telemetry discontinued. All belongings collected and sent with patient. Patient wheeled to private vehicle by RN at 1735, to be transported home by son.
[2019-04-27 13:10] LABS: ATYPICAL PANCA <1:20 titer (Neg:<1:20); CYTOPLASMIC (C-ANCA) <1:20 titer (Neg:<1:20); PERINUCLEAR (P-ANCA) <1:20 titer (Neg:<1:20)
[2019-04-28] MEDS ORDERED: VANCOMYCIN LEVEL IV ONE (08:30)
[2019-04-28 08:31] LABS: ALBUMIN, UR Note: % (.); PROTEIN,TOTAL,URINE 6.3 mg/dL (Not Estab.)
== END 2019-04-26 17:30 | disposition home health service (06) | DRG 291 ==
LOC: ER 13:16 → ED HOLD 17:02 → MED 3N 18:20
PROVIDERS: ADMIT Internal Medicine; ATTEND Family Medicine
PROC: CB121ZZ Planar Nuclear Medicine Imaging of Lungs and Bronchi using Technetium 99m (Tc-99m) (ICD-10-PCS; principal; 2019-04-26)
DX: I50.33 Acute on chronic diastolic (congestive) heart failure (principal); K72.00 Acute and subacute hepatic failure without coma; I13.0 Hypertensive heart and chronic kidney disease with heart failure and stage 1 through stage 4 chronic kidney disease, or unspecified chronic kidney disease; Z68.42 Body mass index [BMI] 45.0-49.9, adult; N18.4 Chronic kidney disease, stage 4 (severe); F11.20 Opioid dependence, uncomplicated; N17.9 Acute kidney failure, unspecified; L98.499 Non-pressure chronic ulcer of skin of other sites with unspecified severity; E87.5 Hyperkalemia; E66.01 Morbid (severe) obesity due to excess calories; I27.81 Cor pulmonale (chronic); D64.9 Anemia, unspecified; E11.21 Type 2 diabetes mellitus with diabetic nephropathy; F32.9 Major depressive disorder, single episode, unspecified; I95.9 Hypotension, unspecified; M54.9 Dorsalgia, unspecified; E11.22 Type 2 diabetes mellitus with diabetic chronic kidney disease; J44.9 Chronic obstructive pulmonary disease, unspecified; E11.622 Type 2 diabetes mellitus with other skin ulcer; G47.00 Insomnia, unspecified; G89.4 Chronic pain syndrome; I48.0 Paroxysmal atrial fibrillation; Z79.01 Long term (current) use of anticoagulants; Z82.3 Family history of stroke; Z82.41 Family history of sudden cardiac death; Z82.49 Family history of ischemic heart disease and other diseases of the circulatory system; Z83.3 Family history of diabetes mellitus; Z87.891 Personal history of nicotine dependence; Z88.0 Allergy status to penicillin; Z88.8 Allergy status to other drugs, medicaments and biological substances; Z79.899 Other long term (current) drug therapy; Z98.51 Tubal ligation status
CPT/HCPCS: 36415; 71045; 76700; 76937; 78582; 80053; 80061; 80069; 80162; 80202; 81001; 82570; 82948; 83036; 83605; 83615; 83690; 83735; 83880; 84100; 84132; 84145; 84155; 84156; 84165; 84166; 84300; 84443; 84484; 85025; 85379; 85610; 85730; 86038; 86060; 86160; 86256; 86592; 86803; 87040; 87081; 87207; 87340; 93005; 93306; 94667; 94760; 96365; 96375; 97110; 97116; 97161; 97530; 99285; A9539; A9540; G0378; J1160; J1250; J1815; J1940; J1956; J2270; J2405; J3370; J3475; J3480; J3490

== ENCOUNTER 2019-05-17 18:03 | Emergency (ER) | payer MEDICARE, OTHER ==
[~2019-05-17] VITALS: Ht 182.9 cm; Wt 136.3 kg
[~2019-05-17 18:03] MED LIST changes: +CARSR60C PO; -FAMO20TA8 PO; +FURO-150 PO; +GLIM1TAB3 PO; +LACT1CAP26 PO; +LEVO250T58 PO; +METO-395 PO; -METO50TA16 PO; +MSC100T PO; +POTA10TA36 PO; +SITA100T11 PO; +TRAZ-219 PO; -[UNRECOGNIZED DRUG - CODE] PO
[2019-05-17 18:52] LABS: BASOPHILS % (AUTO) 0.4 % (0-1); EOSINOPHILS # (AUTO) 0.2 X10'3 (0-0.9); EOSINOPHILS % (AUTO) 3.2 % (0-6); HEMATOCRIT 31.1 % (35.0-45.0); HEMOGLOBIN 10.2 g/dl (12.0-16.0); LYMPHOCYTES # (AUTO) 1.2 X10'3 (1.1-4.8); LYMPHOCYTES % (AUTO) 15.9 % (21-51); MEAN CORPUSCULAR HEMOGLOBIN 26.9 PG (27.0-31.0); MEAN CORPUSCULAR VOLUME 81.6 FL (78-98); MEAN PLATELET VOLUME 6.8 FL (7.4-10.4); MONOCYTES # (AUTO) 0.6 X10'3 (0-0.9); MONOCYTES % (AUTO) 7.4 % (2-12); NEUTROPHILS # (AUTO) 5.5 X10'3 (1.8-7.7); NEUTROPHILS % (AUTO) 73.1 % (42-75); PLATELET COUNT 279 X10'3 (140-440); RED BLOOD COUNT 3.81 X10'6 (4.20-5.60); RED CELL DISTRIBUTION WIDTH 17.5 % (11.5-14.5); WHITE BLOOD COUNT 7.5 X10'3 (4.5-11.0)
[2019-05-17 19:02] LABS: ALANINE AMINOTRANSFERASE 17 U/L (12-78); ALBUMIN 2.9 G/DL (3.4-5.0); ALBUMIN/GLOBULIN RATIO 0.5 (1.1-1.5); ALKALINE PHOSPHATASE 143 IU/L (46-116); ANION GAP 6 (8-16); ASPARTATE AMINO TRANSFERASE 14 U/L (10-37); BILIRUBIN,TOTAL 0.4 MG/DL (0.1-1.0); BLOOD UREA NITROGEN 28 MG/DL (7-18); CALCIUM 8.2 MG/DL (8.5-10.1); CHLORIDE 100 MMOL/L (99-107); CREATININE 1.65 MG/DL (0.40-0.90); GLUCOSE 201 MG/DL (70-104); POTASSIUM 4.4 MMOL/L (3.5-5.1); SODIUM 134 MMOL/L (135-145); TOTAL CARBON DIOXIDE 28.5 MMOL/L (24-32); TOTAL PROTEIN 8.5 G/DL (6.4-8.2); eGFR 32 ML/MIN
--- NOTE | 2019-05-17 20:00 | NUR ---
PROVIDERS KAMILLA AND CHILD AT BED SIDE, CONSULTING ABOUT PT CASE
[2019-05-17] MEDS ORDERED: HYDROcodone/acetaminophen 5mg/325mg tablet PO ONE (23:55)
[2019-05-17] MEDS ORDERED: HYDR-3965 PO (23:59)
[2019-05-18 00:14] VITALS: BP 115/57
== END 2019-05-18 00:19 | disposition home or self-care (01) ==
LOC: ER 18:04
DX: E11.622 Type 2 diabetes mellitus with other skin ulcer (principal); L97.929 Non-pressure chronic ulcer of unspecified part of left lower leg with unspecified severity; I11.0 Hypertensive heart disease with heart failure; I50.9 Heart failure, unspecified; I48.91 Unspecified atrial fibrillation; G89.29 Other chronic pain; Z98.890 Other specified postprocedural states; Z88.0 Allergy status to penicillin; Z88.1 Allergy status to other antibiotic agents; Z79.899 Other long term (current) drug therapy
CPT/HCPCS: 36415; 80053; 84145; 85025; 93971; 99284

== ENCOUNTER 2019-05-26 18:56 | Inpatient (IN) | payer MEDICARE ==
[~2019-05-26] VITALS: Ht 182.9 cm; Wt 150.0 kg
[2019-05-26] MEDS ORDERED: normal saline 1000ML IV soln IV ONE (19:15)
[2019-05-26] MEDS ORDERED: vancomycin/NS 1 GM ADD-VANTAGE 250 ML IV ONE (19:15)
[2019-05-26 20:16] LABS: BASOPHILS % (AUTO) 0.3 % (0-1); EOSINOPHILS # (AUTO) 0.1 X10'3 (0-0.9); EOSINOPHILS % (AUTO) 1.8 % (0-6); HEMATOCRIT 28.8 % (35.0-45.0); HEMOGLOBIN 9.3 g/dl (12.0-16.0); LYMPHOCYTES # (AUTO) 0.8 X10'3 (1.1-4.8); LYMPHOCYTES % (AUTO) 10.9 % (21-51); MEAN CORPUSCULAR HEMOGLOBIN 26.8 PG (27.0-31.0); MEAN CORPUSCULAR HGB CONC 32.4 g/dL (33.0-36.5); MEAN CORPUSCULAR VOLUME 82.8 FL (78-98); MEAN PLATELET VOLUME 7.2 FL (7.4-10.4); MONOCYTES # (AUTO) 0.5 X10'3 (0-0.9); MONOCYTES % (AUTO) 6.5 % (2-12); NEUTROPHILS # (AUTO) 5.8 X10'3 (1.8-7.7); NEUTROPHILS % (AUTO) 80.5 % (42-75); PLATELET COUNT 232 X10'3 (140-440); RED BLOOD COUNT 3.48 X10'6 (4.20-5.60); RED CELL DISTRIBUTION WIDTH 17.2 % (11.5-14.5); WHITE BLOOD COUNT 7.2 X10'3 (4.5-11.0)
[2019-05-26 20:25] LABS: ALANINE AMINOTRANSFERASE 24 U/L (12-78); ALBUMIN 2.8 G/DL (3.4-5.0); ALBUMIN/GLOBULIN RATIO 0.6 (1.1-1.5); ALKALINE PHOSPHATASE 155 IU/L (46-116); ANION GAP 11 (8-16); ASPARTATE AMINO TRANSFERASE 22 U/L (10-37); BILIRUBIN,TOTAL 0.5 MG/DL (0.1-1.0); BLOOD UREA NITROGEN 33 MG/DL (7-18); BUN/CREATININE RATIO 17.2 (6.6-38.0); CALCIUM 7.8 MG/DL (8.5-10.1); CHLORIDE 99 MMOL/L (99-107); CREATININE 1.92 MG/DL (0.40-0.90); GLUCOSE 226 MG/DL (70-104); PARTIAL THROMBOPLASTIN TIME 31 SECONDS (22-32); SODIUM 132 MMOL/L (135-145); TOTAL CARBON DIOXIDE 22.3 MMOL/L (24-32); TOTAL PROTEIN 7.7 G/DL (6.4-8.2); eGFR 27 ML/MIN
[2019-05-26 20:43] LABS: CLARITY,URINE SLIGHTLY CLOUDY (Clear); COLOR,URINE YELLOW (Yellow); GLUCOSE, URINE NEGATIVE (Neg); KETONES,URINE NEGATIVE (Neg); LEUKOCYTE ESTERASE ,URINE NEGATIVE (Neg); NITRITES, URINE NEGATIVE (Neg); OCCULT BLOOD,URINE NEGATIVE (Neg); PROTEIN,URINE TRACE mg/dl (Neg)
[2019-05-26 20:50] LABS: UA COLLECTION TYPE STRAIGHT CATH
[2019-05-26 20:53] LABS: WBC,URINE NONE SEEN /HPF (0-4)
[2019-05-26 20:54] LABS: AMORPHOUS URATES 3+; BACTERIA,URINE NONE SEEN /HPF (Neg); CAL OXALATE CRYSTALS FEW /HPF (NEGATIVE); RBC,URINE NONE SEEN /HPF (0-2); SQUAMOUS EPITHELIAL CELL,UR FEW /LPF (FEW)
[2019-05-26 20:55] LABS: MUCUS STRANDS FEW /LPF (Neg)
[2019-05-26] MEDS ORDERED: METF500T PO (21:03)
[2019-05-26] MEDS ORDERED: ondansetron/PF 4mg/2ml inj IV PRN (21:15)
[2019-05-26] MEDS ORDERED: magnesium hydroxide 30ml (MOM) UD suspension PO PRN (21:15)
[2019-05-26] MEDS ORDERED: morphine 2 MG/ML inj. syringe IV PRN ×2 (21:15)
[2019-05-26] MEDS ORDERED: mag hydrox/Alum hydrox/simeth 30ml oral suspension PO PRN (21:15)
[2019-05-26] MEDS ORDERED: acetaminophen 325mg tablet PO PRN ×2 (21:15)
[2019-05-26] MEDS ORDERED: dextrose ORAL solution 15 GM/59 ML bottle PO PRN ×2 (21:20)
[2019-05-26] MEDS ORDERED: glucagon, human recombinant 1mg kit SUBCUT PRN (21:20)
[2019-05-26] MEDS ORDERED: MESSAGE TO PHARMACY PO ONE (21:20)
[2019-05-26] MEDS ORDERED: dextrose 50%-water 50ml dispensing syringe IV PRN ×2 (21:20)
[2019-05-26] MEDS ORDERED: diazepam 5mg tablet PO PRN (21:20)
--- NOTE | 2019-05-26 21:34 | NUR ---
Pt refused to allow this headline writer to take inventory of her backpack prior to admission. Security was notified to assist with search. Pt refused to tell security what was in bag and refused to let them search. Pt became agitated and stated she was going to leave. JANENE Govea at bedside and informed Pt she would be leaving AMA, Pt stated "I am going to leave as soon as my son gets here."
[2019-05-26] MEDS ORDERED: oxyCODONE IR 5mg (immed. release) tablet PO PRN (22:25)
[2019-05-26 22:30] VITALS: BP 128/72
[2019-05-27] VITALS (7 sets, daily range): BP systolic 92–156; BP diastolic 50–97
[2019-05-27] MEDS ORDERED: cefepime 2gm inj IV SCH
[2019-05-27 05:23] LABS: BASOPHILS % (AUTO) 0.7 % (0-1); EOSINOPHILS # (AUTO) 0.1 X10'3 (0-0.9); EOSINOPHILS % (AUTO) 0.9 % (0-6); HEMATOCRIT 29.7 % (35.0-45.0); HEMOGLOBIN 9.8 g/dl (12.0-16.0); LYMPHOCYTES # (AUTO) 0.7 X10'3 (1.1-4.8); LYMPHOCYTES % (AUTO) 9.9 % (21-51); MEAN CORPUSCULAR HEMOGLOBIN 26.9 PG (27.0-31.0); MEAN CORPUSCULAR HGB CONC 32.9 g/dL (33.0-36.5); MEAN CORPUSCULAR VOLUME 81.8 FL (78-98); MEAN PLATELET VOLUME 7.2 FL (7.4-10.4); MONOCYTES # (AUTO) 0.6 X10'3 (0-0.9); MONOCYTES % (AUTO) 8.1 % (2-12); NEUTROPHILS # (AUTO) 5.7 X10'3 (1.8-7.7); NEUTROPHILS % (AUTO) 80.4 % (42-75); PLATELET COUNT 237 X10'3 (140-440); RED BLOOD COUNT 3.64 X10'6 (4.20-5.60); RED CELL DISTRIBUTION WIDTH 17.1 % (11.5-14.5); WHITE BLOOD COUNT 7.1 X10'3 (4.5-11.0)
[2019-05-27 05:54] LABS: ALBUMIN 2.7 G/DL (3.4-5.0); ANION GAP 7 (8-16); BLOOD UREA NITROGEN 30 MG/DL (7-18); BUN/CREATININE RATIO 15.2 (6.6-38.0); CALCIUM 7.6 MG/DL (8.5-10.1); CHLORIDE 101 MMOL/L (99-107); CREATININE 1.97 MG/DL (0.40-0.90); GLUCOSE 188 MG/DL (70-104); POTASSIUM 4.8 MMOL/L (3.5-5.1); SODIUM 135 MMOL/L (135-145); TOTAL CARBON DIOXIDE 27.1 MMOL/L (24-32); eGFR 26 ML/MIN
[2019-05-27] MEDS: metoprolol succinate 25mg (24-HOUR) SR. Tablet PO SCH (07:30)
[2019-05-27] MEDS: furosemide 20 MG/2 ML vial IV SCH ×2 (07:30→21:23)
[2019-05-27] MEDS: potassium chloride 10mEq ER tablet PO SCH (07:40)
[2019-05-27] MEDS: apixaban 5mg tablet PO SCH ×2 (07:40→20:00)
[2019-05-27] MEDS: duloxetine 30mg CAPSULE.DR PO SCH (07:40)
[2019-05-27] MEDS ORDERED: vancomycin/NS 1 GM ADD-VANTAGE 250 ML IV SCH (08:00)
[2019-05-27] MEDS ORDERED: furosemide 20MG tablet PO SCH (08:00)
[2019-05-27] MEDS ORDERED: enoxaparin 40mg/0.4ml syringe SUBCUT SCH (08:00)
[2019-05-27] MEDS: morphine ER 100mg tablet PO SCH ×3 (09:31→21:00)
[2019-05-27] MEDS: insulin Lispro (HumaLOG) vial - multi-dose SQ SCH ×2 (09:35→13:14)
[2019-05-27 10:15] LABS: ABG BASE EXCESS -3.5 mmol/L (-2.0-3.0); ABG HCO3 25.6 mmol/L (22.0-26.0); ABG OXYGEN SATURATION 78.2 % (95-98); ABG PCO2 (T) 69.1 mmHg (35.0-45.0); ABG PH (T) 7.186 (7.350-7.450); ABG PO2 (T) 43.3 mmHg (83-108); ALLEN'S TEST Positive; FCOHb 0.9 % (0.5-1.5); FO2Hb 77.5 % (94-100); TOTAL HEMOGLOBIN 10.4 G/dl (12.0-16.0)
[2019-05-27 10:51] LABS: ABG BASE EXCESS -3.6 mmol/L (-2.0-3.0); ABG HCO3 25.6 mmol/L (22.0-26.0); ABG PCO2 (T) 70.1 mmHg (35.0-45.0); ABG PO2 (T) 35.4 mmHg (83-108); FCOHb 0.3 % (0.5-1.5); FMetHb 0.1 % (0.3-1.12); FO2Hb 66.7 % (94-100); TOTAL HEMOGLOBIN 10.5 G/dl (12.0-16.0)
--- NOTE | 2019-05-27 11:15 | NUR ---
ABG OBTAINED. CRITICAL CO2 AND PO2 REPORTED TO DR MATA. VERBAL BIPAP ORDERED AND PLACED ON PT. EXPLAINED THE BENEFITS TO THE PT AND SHE TORN THE MASK OFF TWICE. STATED THAT SHE WAS NOT GOING TO WEAR IT AND THAT SHE WOULD RATHER THAN WEAR IT OR BE INTUBATED. REEDUCATED THE PT ON WHY SHE NEEDS TO WEAR IT AND THE REPERCUSSIONS OF REFUSING THE BIPAP AND STILL SHE CONTINUED TO REFUSE THE BIPAP. RN AND TECHNICAL BUSINESS ANALYST NOTIFIED.
--- NOTE | 2019-05-27 11:24 | NUR ---
Kaleigh, primary RN, phoned Dr. Hunter to inform that pt is refusing ordered BiPAP tx, and to request if MD would like to instruct pt further. MD stated nursing can instruct pt further, and no new orders at this time. I went to bedside w/ Kaleigh, RN, to evaluate her understanding of the rationale for BiPAP order, and risks if not allowing BiPAP tx. Pt verbalized clearly accurate rationale for BiPAP orders, but that she is unable to tolerate the apparatus d/t her "claustrophobia". Pt is aware of possible anti-anxiety meds available, but she declined at this time. She also stated that if she should require intubation at a later time she would allow it "because I'll be asleep". RTx notified. RENA was in room initiating Wd Care at the close of discussion w/ pt.
[2019-05-27] MEDS ORDERED: CARCD120C PO (11:36)
[2019-05-27] MEDS ORDERED: GLIM1TAB PO (11:42)
[2019-05-27] MEDS ORDERED: FURO20TA4 PO (11:42)
--- NOTE | 2019-05-27 12:06 | NUR ---
DM/wound consult: Pt admit with acute cellulitis of LLE with chronic wounds to [facility] that has been followed at the wound clinic per H&P. Wound care has been consulted, pending further assessment. Pt is with multiple past admits and seen by RD each visit for DM and protein education with RD contact information. No further education warranted at this time. Pt currently on heart healthy CHO controlled diet documented with 100% PO intake, d/w dietary to send double protein BIDLD as pt requested that at last visit for satiety and with increased protein needs for wound healing. Will continue to follow. Recommendations: 1) Continue heart healthy CHO controlled diet 2) Double protein BIDLD 3) Routine bowel care 4) Wt per rx Addendum: 05/27/19 at [address] Amended: Links added.
[2019-05-27] MEDS: diltiazem CD 120mg capsule (once-daily) PO SCH (13:03)
[2019-05-27] MEDS ORDERED: LORazepam 0.5 MG tablet PO PRN (14:05)
[2019-05-27] MEDS: LORazepam 2 mg/ml vial IV PRN ×2 (14:48→20:04)
--- NOTE | 2019-05-27 15:00 | NUR ---
Patient arrived on unit, report received from KIKA Farris, patient alert but lethargic, started on bipap by RT, VSS, will continue to monitor.
--- NOTE | 2019-05-27 15:58 | NUR ---
Student documentation: I have reviewed all interventions, assessments performed and documented by .James HAYNES
[2019-05-27 16:06] LABS: URINE AMPHETAMINE SCREEN NEGATIVE (Neg); URINE BARBITUATE SCREEN NEGATIVE (Neg); URINE BENZODIAZEPINES SCREEN POSITIVE (Neg); URINE CANNABINOID SCREEN NEGATIVE (Neg); URINE COCAINE SCREEN NEGATIVE (Neg); URINE METHADONE SCREEN NEGATIVE (Neg); URINE OPIATE SCREEN POSITIVE (Neg); URINE PHENCYCLIDINE SCREEN NEGATIVE (Neg)
--- NOTE | 2019-05-27 18:00 | NUR ---
Patient in room PCU 3020. I have received report from KIKA Mayo and had the opportunity to ask questions and assume patient care.
--- NOTE | 2019-05-27 18:19 | NUR ---
Problems reprioritized. Patient report given, questions answered & plan of care reviewed with KIKA Adan.
--- NOTE | 2019-05-27 19:11 | NUR ---
RN will not cover insulin after dinner due to pt having hypoglycemia earlier.
--- NOTE | 2019-05-27 19:39 | NUR ---
Pt has been on nasal cannula which she takes off from time to time. She refused BiPAP despite RN teaching regarding abnormal ABG.
--- NOTE | 2019-05-27 19:56 | NUR ---
Paged dr. Anguiano. [phone] Edison Nuñez is hostile, refusing BiPAP, now in restraint. Her ABG from 10 am is abnormal, pH 7.18, pCO2 70,pO2 35.4. she will be in restraint on BiPAP, need a sitter. Do you want her to stay here or transfer to ICU?
[2019-05-27] MEDS: lactobacillus rhamnosus 10,000 MMU CELLS/CAPSULE PO SCH (20:00)
[2019-05-27 20:40] LABS: ABG BASE EXCESS -3.7 mmol/L (-2.0-3.0); ABG HCO3 25.4 mmol/L (22.0-26.0); ABG OXYGEN SATURATION 55.6 % (95-98); ABG PCO2 (T) 69.8 mmHg (35.0-45.0); ABG PO2 (T) 30.8 mmHg (83-108); ALLEN'S TEST Positive; FCOHb 0.8 % (0.5-1.5); FLOW 3 L/min; FMetHb 0.1 % (0.3-1.12); FO2Hb 55.1 % (94-100); PATIENT TEMPERATURE 37.1; RESPIRATORY RATE (OBSERVED) 20 b/min; TOTAL HEMOGLOBIN 10.2 G/dl (12.0-16.0)
--- NOTE | 2019-05-27 20:54 | NUR ---
Paged hospitalist, new ABG drawn PAGER ID: [phone] MESSAGE: PCU 3020, Ness Nuñez ABG 7.18, pCO2 69.8, gave Ativan, pt still refuses biPAP stating she has severe claustrophobia. ICU transfer?
--- NOTE | 2019-05-27 20:57 | NUR ---
Talked to Dr. Anguiano, he will initiate a consult with Joseph Tellez NP regarding ICU transfer
[2019-05-27] MEDS ORDERED: traZODone 50mg tablet PO SCH (21:00)
[2019-05-27] MEDS ORDERED: insulin glargine (Lantus) pen - multi-dose SQ SCH (21:00)
[2019-05-27] MEDS ORDERED: haloperidol lactate 5mg/ml inj IM ONE (22:05)
[2019-05-27] MEDS ORDERED: haloperidol lactate 5mg/ml inj IM PRN (22:05)
[2019-05-27] MEDS ORDERED: LORazepam 2 mg/ml vial IV PRN (22:05)
[2019-05-27] MEDS ORDERED: LORazepam 2 mg/ml vial ONE (22:10)
--- NOTE | 2019-05-27 22:48 | NUR ---
late admin for Vanco, medication was delivered late
[2019-05-28 00:15] LABS: ABG BASE EXCESS -3.1 mmol/L (-2.0-3.0); ABG HCO3 25.6 mmol/L (22.0-26.0); ABG OXYGEN SATURATION 97.9 % (95-98); ABG PCO2 (T) 66.9 mmHg (35.0-45.0); ABG PH (T) 7.198 (7.350-7.450); ABG PO2 (T) 114.2 mmHg (83-108); ALLEN'S TEST Positive; FCOHb 0.5 % (0.5-1.5); FMetHb 0.1 % (0.3-1.12); FO2Hb 97.3 % (94-100); MINUTE VOLUME 8 L/min; PATIENT TEMPERATURE 36.6; RESPIRATORY RATE 12 b/min; RESPIRATORY RATE (OBSERVED) 14 b/min; TOTAL HEMOGLOBIN 9.2 G/dl (12.0-16.0)
[2019-05-28 02:00] VITALS: BP 110/56
[2019-05-28 04:26] LABS: ABG BASE EXCESS -2.3 mmol/L (-2.0-3.0); ABG HCO3 26.3 mmol/L (22.0-26.0); ABG OXYGEN SATURATION 95.8 % (95-98); ABG PCO2 (T) 67.7 mmHg (35.0-45.0); ABG PH (T) 7.205 (7.350-7.450); ABG PO2 (T) 85.6 mmHg (83-108); ALLEN'S TEST Positive; FCOHb 0.8 % (0.5-1.5); FMetHb 0.1 % (0.3-1.12); FO2Hb 94.9 % (94-100); MINUTE VOLUME 4 L/min; PATIENT TEMPERATURE 36.6; RESPIRATORY RATE 12 b/min; RESPIRATORY RATE (OBSERVED) 15 b/min; TOTAL HEMOGLOBIN 9.3 G/dl (12.0-16.0)
[2019-05-28 05:20] LABS: BASOPHILS % (AUTO) 0.3 % (0-1); EOSINOPHILS # (AUTO) 0.1 X10'3 (0-0.9); EOSINOPHILS % (AUTO) 1.9 % (0-6); HEMATOCRIT 25.5 % (35.0-45.0); HEMOGLOBIN 8.4 g/dl (12.0-16.0); LYMPHOCYTES # (AUTO) 0.7 X10'3 (1.1-4.8); LYMPHOCYTES % (AUTO) 15.3 % (21-51); MEAN CORPUSCULAR HEMOGLOBIN 27.3 PG (27.0-31.0); MEAN CORPUSCULAR VOLUME 82.9 FL (78-98); MEAN PLATELET VOLUME 7.3 FL (7.4-10.4); MONOCYTES # (AUTO) 0.4 X10'3 (0-0.9); MONOCYTES % (AUTO) 8.9 % (2-12); NEUTROPHILS # (AUTO) 3.5 X10'3 (1.8-7.7); NEUTROPHILS % (AUTO) 73.6 % (42-75); PLATELET COUNT 190 X10'3 (140-440); RED BLOOD COUNT 3.07 X10'6 (4.20-5.60); RED CELL DISTRIBUTION WIDTH 17.1 % (11.5-14.5); WHITE BLOOD COUNT 4.7 X10'3 (4.5-11.0)
[2019-05-28 05:27] LABS: ALBUMIN 2.5 G/DL (3.4-5.0); ANION GAP 4 (8-16); BLOOD UREA NITROGEN 30 MG/DL (7-18); BUN/CREATININE RATIO 16.2 (6.6-38.0); CALCIUM 7.6 MG/DL (8.5-10.1); CHLORIDE 102 MMOL/L (99-107); CHOL/HDL RATIO 4.7 (0.00-4.99); CHOLESTEROL 127 MG/DL (0-200); CREATININE 1.85 MG/DL (0.40-0.90); GLUCOSE 147 MG/DL (70-104); HDL CHOLESTEROL 27 MG/DL (35-60); LDL CHOLESTEROL 85 MG/DL (50-100); POTASSIUM 4.2 MMOL/L (3.5-5.1); SODIUM 135 MMOL/L (135-145); TOTAL CARBON DIOXIDE 28.8 MMOL/L (24-32); TRIGLYCERIDES 105 MG/DL (20-135); eGFR 28 ML/MIN
[2019-05-28 05:40] LABS: % IRON SATURATION 17 % (11-46); IRON 53 UG/DL (49-151); TOTAL IRON BINDING CAPACITY 303 UG/DL (259-388)
[2019-05-28 06:00] VITALS: BP 108/54
--- NOTE | 2019-05-28 06:00 | NUR ---
Problems reprioritized. Patient report given, questions answered & plan of care reviewed with KIKA Santos.
--- NOTE | 2019-05-28 06:44 | NUR ---
Patient in room PCU 3020. I have received report from KIKA Adan and had the opportunity to ask questions and assume patient care.
[2019-05-28] MEDS: furosemide 20 MG/2 ML vial IV SCH (07:17)
[2019-05-28] MEDS ORDERED: linagliptin 5mg tablet PO SCH (08:00)
[2019-05-28] MEDS ORDERED: diltiazem CD 120mg capsule (once-daily) PO SCH (08:00)
[2019-05-28] MEDS: morphine ER 100mg tablet PO SCH ×2 (08:00→14:46)
[2019-05-28 11:00] VITALS: BP 113/58
[2019-05-28 11:36] LABS: ABG BASE EXCESS -4.6 mmol/L (-2.0-3.0); ABG HCO3 23.8 mmol/L (22.0-26.0); ABG OXYGEN SATURATION 90.7 % (95-98); ABG PH (T) 7.196 (7.350-7.450); ABG PO2 (T) 65.7 mmHg (83-108); ALLEN'S TEST Positive; FCOHb 0.4 % (0.5-1.5); FMetHb 0.2 % (0.3-1.12); FO2Hb 90.2 % (94-100); MINUTE VOLUME 10 L/min; RESPIRATORY RATE 14 b/min; RESPIRATORY RATE (OBSERVED) 14 b/min; TOTAL HEMOGLOBIN 9.7 G/dl (12.0-16.0)
--- NOTE | 2019-05-28 11:38 | NUR ---
PAGER ID: [phone] MESSAGE: [id number] Susie Nuñez: New ABG pH 7.196, CO2 63 KIKA Santos Ext [phone]
[2019-05-28] MEDS: potassium chloride 10mEq ER tablet PO SCH (14:20)
[2019-05-28] MEDS: duloxetine 30mg CAPSULE.DR PO SCH (14:20)
[2019-05-28] MEDS: apixaban 5mg tablet PO SCH (14:20)
[2019-05-28] MEDS: metoprolol succinate 25mg (24-HOUR) SR. Tablet PO SCH (14:20)
[2019-05-28] MEDS: lactobacillus rhamnosus 10,000 MMU CELLS/CAPSULE PO SCH (14:20)
[2019-05-28] MEDS: diltiazem CD 120mg capsule (once-daily) PO SCH (14:20)
[2019-05-28] MEDS: insulin Lispro (HumaLOG) vial - multi-dose SQ SCH (14:27)
--- NOTE | 2019-05-28 14:40 | NUR ---
PAGER ID: [phone] MESSAGE: RM [id number] Susie Nuñez was wanting to talk to you. She had questions about the mask. I explained the reasoning behind it and the CO2 being too high, but she wants to hear from the doctor. KIKA Santos Ext [phone]
--- NOTE | 2019-05-28 14:58 | NUR ---
0800 meds given late patient was asleep with Bi-pap on need for critical blood gas. Patient per report is non-compliant with bi-pap when awake. Patient awake at 1400 so meds were given then. Patient non compliant now with mask despite education.
[2019-05-28 15:00] VITALS: BP 124/69
--- NOTE | 2019-05-28 15:19 | NUR ---
PAGER ID: [phone] MESSAGE: RM [id number] Susie Nuñez: Non-complaint with Bi-pap has been educated by me and Dr Fuchs, Dr Fuchs ordered an ABG, but the patient was still hoping to talk to you. ext [phone]
[2019-05-28 15:35] LABS: ABG BASE EXCESS -1.6 mmol/L (-2.0-3.0); ABG HCO3 25.9 mmol/L (22.0-26.0); ABG OXYGEN SATURATION 93.4 % (95-98); ABG PCO2 (T) 58.2 mmHg (35.0-45.0); ABG PH (T) 7.266 (7.350-7.450); ABG PO2 (T) 66.6 mmHg (83-108); ALLEN'S TEST Positive; FCOHb 0.8 % (0.5-1.5); FLOW 2 L/min; FMetHb 0.1 % (0.3-1.12); FO2Hb 92.6 % (94-100); TOTAL HEMOGLOBIN 9.9 G/dl (12.0-16.0)
--- NOTE | 2019-05-28 15:48 | NUR ---
Phoned patient's and informed him of patient's desire to leave AMA. Pt's states that he will send his son to cloth picker patient.
--- NOTE | 2019-05-28 16:18 | NUR ---
Pt family members at bedside. Pt is dressed, ready to leave, has personal belongings. Telemetry monitoring removed, IV removed by primary RN. Pt refused to allow staff to remove hospital ID bracelet, pt tore bracelet off and put into backpack. Pt off unit at 1620.
[2019-05-28] MEDS ORDERED: VANCOMYCIN LEVEL IV ONE ×2 (19:30→21:30)
== END 2019-05-28 16:28 | disposition left against medical advice (07) | DRG 604 ==
LOC: ER 18:57 → ED HOLD 21:13 → SUR 3N 22:20 → PCU 3S 05-27 15:05
PROVIDERS: ADMIT Internal Medicine; ATTEND Family Medicine
PROC: 5A09357 Assistance with Respiratory Ventilation, Less than 24 Consecutive Hours, Continuous Positive Airway Pressure (ICD-10-PCS; principal; 2019-05-27)
DX: S81.802A Unspecified open wound, left lower leg, initial encounter (principal); G92 Toxic encephalopathy; J96.21 Acute and chronic respiratory failure with hypoxia; J96.22 Acute and chronic respiratory failure with hypercapnia; L03.116 Cellulitis of left lower limb; E87.2 Acidosis; I13.0 Hypertensive heart and chronic kidney disease with heart failure and stage 1 through stage 4 chronic kidney disease, or unspecified chronic kidney disease; Z68.41 Body mass index [BMI] 40.0-44.9, adult; E11.65 Type 2 diabetes mellitus with hyperglycemia; E11.22 Type 2 diabetes mellitus with diabetic chronic kidney disease; N18.3 Chronic kidney disease, stage 3 (moderate); D50.9 Iron deficiency anemia, unspecified; E66.01 Morbid (severe) obesity due to excess calories; Z53.29 Procedure and treatment not carried out because of patient's decision for other reasons; F32.9 Major depressive disorder, single episode, unspecified; G89.29 Other chronic pain; M54.9 Dorsalgia, unspecified; I50.9 Heart failure, unspecified; W18.39XA Other fall on same level, initial encounter; F40.240 Claustrophobia; G47.33 Obstructive sleep apnea (adult) (pediatric); I48.0 Paroxysmal atrial fibrillation; Z78.1 Physical restraint status; Z79.01 Long term (current) use of anticoagulants; Z82.3 Family history of stroke; Z82.41 Family history of sudden cardiac death; Z82.49 Family history of ischemic heart disease and other diseases of the circulatory system; Z83.3 Family history of diabetes mellitus; Z86.14 Personal history of Methicillin resistant Staphylococcus aureus infection; Z88.0 Allergy status to penicillin; Z88.8 Allergy status to other drugs, medicaments and biological substances; Z98.51 Tubal ligation status; Y93.89 Activity, other specified; Y92.89 Other specified places as the place of occurrence of the external cause; Y99.8 Other external cause status; Z79.899 Other long term (current) drug therapy
CPT/HCPCS: 36415; 36600; 71045; 73721; 80048; 80053; 80061; 80305; 81001; 82803; 82948; 83540; 83550; 83605; 83880; 84145; 85018; 85025; 85610; 85730; 87040; 87081; 93926; 94660; 94760; 96361; 96365; 96366; 99291; G0378; J0692; J1630; J1815; J1940; J2060; J2270; J3370